=== PATIENT | male | born 1955 | race Caucasian/White ===

== ENCOUNTER 2021-04-16 11:52 | Outpatient (CLI) | payer MEDICARE, OTHER, SELFPAY ==
--- NOTE | 2021-04-16 12:43 | ECG_ITS ---
Measurements Intervals [place] Rate: 65 P: 73 MT: 205 QRS: 27 QRSD: 104 T: 29 QT: 404 QTc: 422 Interpretive Statements SINUS RHYTHM CONSIDER INFERIOR INFARCT, AGE INDETERMINATE ABNORMAL ECG Electronically Signed On 04-16-2021 13:25:28 CDT by Lorenzo Johnson D.O.
[2021-04-16 13:04] LABS: Basophils Percent Auto 0.5 % (0.2-1.2); Eosinophils Absolute Auto 0.1 K/mm3 (0-0.3); Eosinophils Percent Auto 1.7 % (0-4.4); Hematocrit 43.4 % (42.0-52.0); Immature Granulocyte Absolute 0.02 K/mm3 (0.00-0.031); Immature Granulocyte Percent A 0.3 % (0-0.5); Lymphocytes Absolute Auto 1.93 K/mm3 (0.9-3.2); Lymphocytes Percent Auto 25.4 % (18.3-44.2); Mean Corpuscular HGB Conc 34.6 g/dl (32-36); Mean Corpuscular Hemoglobin 32.8 pg (26-34); Mean Platelet Volume 9.5 fl (7.4-10.4); Monocytes Absolute Auto 0.5 K/mm3 (0.1-0.6); Neutrophils Absolute Auto 4.9 K/mm3 (1.3-6.7); Neutrophils Percent Auto 65.1 % (45.5-73.1); Platelet Count Result 180 k/mm3 (150-375); Red Blood Count 4.57 M/mm3 (4.6-6.20); Red Cell Distribution Width 12.3 % (11.5-14.5); White Blood Count 7.6 K/mm3 (4.5-10.0)
[2021-04-16 13:13] LABS: INR 0.8; Prothrombin Time 11.1 Seconds (11.1-14.7)
[2021-04-16 13:14] LABS: Partial Thromboplastin Time 27.9 SECONDS (22.3-36.8)
[2021-04-16 13:22] LABS: Alanine Aminotransferase 44 U/L (4-50); Albumin Level 4.6 g/dL (3.5-5.1); Alkaline Phosphatase 73 U/L (38-126); Anion Gap 9 mmol/L (8-16); Aspartate Amino Transferase 24 U/L (17-59); Bilirubin,Total 0.7 mg/dL (0.2-1.3); Blood Urea Nitrogen 14 mg/dL (9-20); Calcium 8.7 mg/dL (8.4-10.2); Carbon Dioxide 24 mmol/L (22-30); Chloride 108 mmol/L (98-107); Estimated Glomerular Filt Rate > 60; Glucose 101 mg/dL (65-110); Potassium 4.1 mmol/L (3.4-5.0); Sodium 141 mmol/L (137-145)
== END 2021-04-16 11:53 | disposition home or self-care (01) ==
LOC: ANHSURGERY 12:00
PROVIDERS: PCP Internal Medicine; Visit Provider Urology
DX: Z01.818 Encounter for other preprocedural examination (principal); C61 Malignant neoplasm of prostate; I10 Essential (primary) hypertension; R94.31 Abnormal electrocardiogram [ECG] [EKG]
CPT/HCPCS: 36415; 80053; 85025; 85610; 85730; 86850; 86900; 86901; 87086; 87147; 87181; 87186; 93005

== ENCOUNTER 2021-04-27 02:01 | Day surgery (SDC) | payer MEDICARE, OTHER, SELFPAY ==
[2021-04-16 12:45] VITALS: BMI 31.5
[2021-04-16 12:53] VITALS: BP 165/82; PULSE 70; RESP 16; TEMP 37.1; O2SAT 100
--- NOTE | 2021-04-26 14:00 | WPDANESEPPF ---
Anes - Initial Pre Proc Eval Procedure: Operation Date: 04/27/21 07:30 Proposed Procedures p Robotic Nerve Sparing Prostatectomy, Possible Bilateral Pelvic Lymph Node Dissection - Salinas Blanchard MD Date/Time: 04/26/21 14:00 Surgeon: Salinas Blanchard MD Pre Op Diagnosis: prostate CA Patient Data Age: 65 Gender: M Height: 1.8 m Weight: 102.5 kg Last Vital Signs Temp 98.8 F 04/16/21 12:53 Pulse 70 04/16/21 12:53 Resp 16 04/16/21 12:53 BP 165/82 H 04/16/21 12:53 Pulse Ox 100 04/16/21 12:53 Allergies Allergy/AdvReac Type Severity Reaction Status Date / Time pollen extracts Allergy Unknown Unknown Verified 04/22/21 11:19 Home Medications Medication Instructions Recorded Confirmed Type ascorbic acid (vitamin C) 500 mg 500 mg PO HS 07/24/19 04/26/21 History capsule calcium polycarbophil 625 mg tablet 1,250 mg PO HS 07/24/19 04/26/21 History fexofenadine 60 mg-pseudoephedrine 1 tablet PO Q12H PRN 07/24/19 04/26/21 History ER 120 mg tablet,ext.release,12 hr amlodipine 5 mg-benazepril 40 mg 1 cap PO DAILY #90 cap 05/18/20 04/26/21 Rx capsule omega-3 fatty acids 1,000 mg 1,000 mg PO DAILY 12/03/20 04/26/21 History capsule atorvastatin 40 mg tablet 40 mg PO DAILY #90 tablet 03/02/21 04/26/21 Rx nitrofurantoin 100 mg PO Q12H 04/22/21 04/26/21 History monohydrate/macrocrystals 100 mg capsule Patient hx anesthesia problems: none Family hx anesthesia problems: none Results Review: All pre-operative results and documents have been reviewed as part of the pre-operative evaluation. [facility] Past Medical History Medical History (Updated 04/22/21 @ 12:28 by Kristi Finn [facility]) Abnormal finding of blood chemistry, unspecified Benign essential hypertension BMI 32.0-32.9,adult BMI 33.0-33.9,adult BMI 36.0-36.9,adult BPH (benign prostatic hyperplasia) Colon cancer screening DJD (degenerative joint disease) Elevated PSA Encounter for preventive health examination Encounter for routine adult health examination without abnormal findings Encounter for special screening examination for neoplasm of prostate Hyperlipidemia IGT (impaired glucose tolerance) On prison drug therapy KRISTY on CPAP Prostate cancer Rising PSA level Vitamin D deficiency Family History Family History Mother Hypertension Father Family history of arthritis Social History Social History Smoking packs per day: 1 Smoking cigarettes per day: 20.0 Years smoked: 30 Smoking pack-years: 30.00 Smoking status: Former smoker Tobacco type: cigarettes and cigars Smoking end date: 07/10/94 Additional smoking assessment comments: SMOKED 2-3 CIGARS DAILY. QUIT 2019 Alcohol intake: current Drinks per week: 84 Alcohol use details: STATES HAS NOT HAD A DRINK SINCE THE BEGINNING OF Living arrangements: with family Spiritual care concerns: No Anes - Eval Final PreProcedure Day of Procedure 04/26/21 14:00 Patient weight: obese Heart: regular rate and rhythm Lungs: clear to auscultation Airway: Mallampati scale class III Neurological: alert and oriented Last oral intake: >/= 8 hours ASA classification: III (glidescope intubation) Emergent: no Anesthetic plan: proceed Anesthesia type and monitoring: general ETT and standard monitoring Results Review: All pre-operative results and documents have been reviewed as part of the pre-operative evaluation. Informed Consent: The patient's anesthetic plan and its attendant risks and benefits were discussed with the patient/family/POA. Questions were solicited and answers provided to the satisfaction of the patient/family/POA.
[2021-04-27] VITALS (15 sets, daily range): BP systolic 129–176; BP diastolic 58–88; PULSE 65–93; RESP 12–20; TEMP 36–37.2; O2SAT 92–100
[2021-04-27] MEDS: LACTATED RINGERS 1,000 ML 30 ML IV CONT ×3 (07:09→12:25)
--- NOTE | 2021-04-27 07:11 | WPDHPUPDATE1 ---
History and Physical Update Update Date/Time: 04/27/21 07:11 History and Physical has been reviewed, including an updated exam of the patient. There are NO changes in the patient's condition. Risks, benefits, and alternatives have been discussed and questions answered. Patient agrees to proceed with procedure.
[2021-04-27] MEDS: ceFAZolin 2 GM/D5W 50 ML 2 GM/50 ML BAG IVPB (07:24)
[2021-04-27] MEDS: BUPIVACAINE HCL 0.5% PF 30 ML VIAL INFILTRATE (08:40)
--- NOTE | 2021-04-27 10:03 | SUR.OPER ---
Frozen section specimen Operative incision- 0724 Excision of specimen- 0941 Out of Room- 0942 Recieved by lab- 0944 Report from lab- [id number]
--- NOTE | 2021-04-27 11:34 | P.OP_ITS ---
Procedure Note - Detailed Date of Procedure 04/27/21 Pre-op Diagnosis prostate CA Post-op Diagnosis same Procedure Performed Her robotic assist nerve-sparing prostatectomy with bilateral pelvic lymph node dissection and closure of umbilical hernia Surgeon Salinas Blanchard MD Anesthesia general Description of Procedure Patient is taken the operative suite correctly identified. Once anesthesia was obtained he was placed in low-lying dorsal lithotomy position and prepped and draped usual sterile fashion. Eighteen [place] Barrios was placed with 20 cc in the balloon. Supraumbilical incision was made carried down to the rectus fascia. It is apparent that he has a small little umbilical herniation just i nferior to my incision. Veress needle was inserted into the abdominal cavity and the abdomen was insufflated to 15 mmHg pressure. Camera port was placed under direct vision. Working ports were placed in appropriate locations. Patient was placed in steep Trendelenburg position and the robot was docked. Posterior approach was then taken. Seminal vesicles were dissected out in their entirety. The vas were transected. Plane between the prostate and rectum was developed. Bladder was then taken down. Space of Retzius was developed bilaterally. Dorsal venous complex was isolated and ligated using 0 Vicryl. Bladder was then incised anteriorly posterior bladder neck was then transected. There was a nice bladder neck sparing procedure performed. The previously dissected space with the vas is were entered. There was some tissue that was excised around the bladder neck on the left side which came back to be simply smooth muscle. Bilateral nerve-sparing was performed. The left side appeared to me to have some abnormal appearing tissue which I then took in a separate specimen. Dorsal venous complex was transected. Urethral stump was also transected. Gurwinder stitch was then placed. Bladder neck was then anastomosed to the urethral stump using the lock suture in a running fashion. There was good approximation mucosa. Bilateral lymphadenectomies were performed with the boun daries being the external iliac veins obturator nerve Mustapha's ligament and bifurcation of the vessels. Clips were placed proximally distally. A clip was placed on the left pelvic lymph node packet for identification. All lap count needle count sponge counts were correct. Bladder was filled with 150 cc of saline there was no evidence of extravasation. Patient is taken recovery room stable condition. Estimated Blood Loss 50 Drains Yes Packing No Pathology yes Complications No immediate complications Condition stable Disposition PACU
[2021-04-27] MEDS: fentaNYL CITRATE INJ (*CRX) 100 MCG/2 ML VIAL 25 MCG IV PUSH ×2 (12:13→12:28)
[2021-04-27] MEDS: LACTATED RINGERS 1,000 ML 125 ML IV CONT ×2 (13:50→21:11)
[2021-04-27] MEDS: HYOSCYAMINE SULFATE 0.125 MG TABLET SUBLINGUAL (13:55)
[2021-04-27] MEDS: HYDROcodone/acetaminophen (*CRX) 5-325 MG TABLET 2 TAB PO (16:00)
[2021-04-27] MEDS: lisinopriL 20 MG TABLET 40 MG PO (16:01)
[2021-04-27] MEDS: DOCUSATE SODIUM 100 MG CAPSULE PO (16:01)
[2021-04-27] MEDS: amLODIPine BESYLATE 5 MG TABLET PO (16:02)
[2021-04-28] MEDS: LACTATED RINGERS 1,000 ML 125 ML IV CONT (05:18)
[2021-04-28 05:49] LABS: Hematocrit 38.3 % (42.0-52.0); Hemoglobin 12.9 g/dL (14.0-18.0)
[2021-04-28 06:00] VITALS: BP 156/70; PULSE 60; RESP 18; TEMP 36.9; O2SAT 98
[2021-04-28 06:04] LABS: Anion Gap 5 mmol/L (8-16); Blood Urea Nitrogen 11 mg/dL (9-20); Calcium 8.6 mg/dL (8.4-10.2); Carbon Dioxide 29 mmol/L (22-30); Chloride 105 mmol/L (98-107); Estimated CRCL calculation 96 ml/min; Estimated Glomerular Filt Rate > 60; Glucose 131 mg/dL (65-110); Potassium 3.7 mmol/L (3.4-5.0); Sodium 139 mmol/L (137-145)
[2021-04-28] MEDS: DOCUSATE SODIUM 100 MG CAPSULE PO (08:52)
[2021-04-28] MEDS: amLODIPine BESYLATE 5 MG TABLET PO (08:52)
[2021-04-28] MEDS: ATORVASTATIN 40 MG TABLET PO (08:52)
[2021-04-28] MEDS: levoFLOXacin 500 MG TABLET PO (08:52)
[2021-04-28] MEDS: lisinopriL 20 MG TABLET 40 MG PO (08:52)
[2021-04-28] MEDS: HYDROcodone/acetaminophen (*CRX) 5-325 MG TABLET 1 TAB PO (08:53)
[2021-04-28 11:44] VITALS: BP 149/81; PULSE 78; RESP 16; TEMP 36.6; O2SAT 94
--- NOTE | 2021-04-28 13:02 | WPDUROPN2 ---
Progress Note: A&P Assessment and Plan (1) Prostate cancer: Code(s): C61 - Malignant neoplasm of prostate Status: Acute Assessment and Plan: Ok to remove TEREZA drain and discharge home with catheter to f/u for cystogram and lombardi removal next week. Subjective Subjective Date/Time Seen: 04/28/21 13:02 POD #1 Robotic Assisted Nerve Sparing Prostatectomy with bilateral Pelvic Lymph Node Dissection and closure of abdominal hernia. He is doing very well, passing flatus, sitting up in bed, tolerating pain and diet. Review of Systems Cardiovascular: Cardiovascular: Denies chest pain Respiratory: Respiratory: Reports no additional respiratory complaints Gastrointestinal: Gastrointestinal: Reports abdominal pain (at inicisions), Denies nausea and Denies vomiting Genitourinary: Genitourinary: Denies hematuria and Denies flank pain Exam Resp: Effort & Inspection: normal respiratory effort Cardio: Rate: regular rate GI: Inspection: incision (all are well approximated, no drainage, edema or redness present, tender ) GI Palp: Yes Soft to palpation and Yes Tenderness to palpation present (GI) : General: Yes no CVA tenderness Urinary Catheter: Urinary Catheter: patent and draining and urine clear Extrem: General: no edema Objective Data Vital Signs Vital Signs: Vital Signs - 24 hr 04/27/21 13:05 04/27/21 13:20 04/27/21 13:35 Temperature 98.3 F Pulse Rate 79 79 78 Respiratory Rate 12 14 18 Blood Pressure 160/84 H 163/83 H 139/77 Pulse Oximetry 92 96 98 04/27/21 13:50 04/27/21 14:20 04/27/21 15:12 Temperature 98.8 F 98.9 F 97.2 F L Pulse Rate 87 87 90 Respiratory Rate 16 16 18 Blood Pressure 167/76 H 156/82 H 176/84 H Pulse Oximetry 95 97 98 04/27/21 19:12 04/27/21 20:00 04/27/21 23:12 Temperature 97.6 F 96.8 F L Pulse Rate 93 93 85 Respiratory Rate 20 20 20 Blood Pressure 152/75 H 143/69 H Pulse Oximetry 97 97 95 04/28/21 06:00 04/28/21 11:44 Temperature 98.5 F 97.8 F Pulse Rate 60 78 Respiratory Rate 18 16 Blood Pressure 156/70 H 149/81 H Pulse Oximetry 98 94 Intake/Output Intake/Output: Intake & Output 04/25/21 04/26/21 04/27/21 04/28/21 23:59 23:59 23:59 23:59 Intake Total 1400 1300 Output Total 245 3965 Balance 3332 -8098 Meds/Results Medications: Active Medications Generic Name Dose Route Start Last Admin Trade Name Freq PRN Reason Stop Dose Admin Hydrocodone Bitart/Acetaminophen 1 tab 04/27/21 13:27 04/28/21 08:53 Hydrocodone/Acetaminophen (*Crx) 5-325 Mg Tablet PO 1 tab Q6H PRN Administration Pain Rated 1-3 Hydrocodone Bitart/Acetaminophen 2 tab 04/27/21 13:27 04/27/21 16:00 Hydrocodone/Acetaminophen (*Crx) 5-325 Mg Tablet PO 2 tab Q6H PRN Administration Pain Rated 4-6 Amlodipine Besylate 5 mg 04/27/21 13:35 04/28/21 08:52 Amlodipine Besylate 5 Mg Tablet PO 5 mg DAILY JOSÉ Administration Atorvastatin Calcium 40 mg 04/28/21 09:00 04/28/21 08:52 Atorvastatin 40 Mg Tablet PO 40 mg DAILY JOSÉ Administration Docusate Sodium 100 mg 04/27/21 17:00 04/28/21 08:52 Docusate Sodium 100 Mg Capsule PO 100 mg BID JOSÉ Administration Hyoscyamine 0.125 mg 04/27/21 13:27 04/27/21 13:55 Hyoscyamine Sulfate 0.125 Mg Tablet SUBLINGUAL 0.125 mg Q4H PRN Administration Bladder Spasm Lactated Ringer's 1,000 mls @ 125 mls/hr 04/27/21 13:27 04/28/21 05:18 Lr - Lactated Ringers Iv IV CONT 125 mls/hr .Q8H JOSÉ Administration Ketorolac Tromethamine 15 mg 04/27/21 13:27 Ketorolac 15 Mg/Ml Vial (*Bkc) IV PUSH 04/28/21 13:26 Q6H PRN Pain Rated 4-6 Levofloxacin 500 mg 04/28/21 09:00 04/28/21 08:52 Levofloxacin 500 Mg Tablet PO 500 mg DAILY JOSÉ Administration Lisinopril 40 mg 04/27/21 13:35 04/28/21 08:52 Lisinopril 20 Mg Tablet PO 40 mg DAILY JOSÉ Administration Morphine Sulfate 1 mg 04/27/21 13:27 Morphine Sulfate (*Crx) 2 Mg/Ml Inj I
--- NOTE | 2021-04-28 13:11 | WPDANESPN ---
Anes - Prog Note Post-Op Date/Time: 04/28/21 13:11 Cardiovascular status: normal Respiratory status: normal Airway patency: baseline Mental status: baseline Post-Op hydration status: normal Vital Signs: Last Vital Signs Temp 36.6 C 04/28/21 11:44 Pulse 78 04/28/21 11:44 Resp 16 04/28/21 11:44 BP 149/81 H 04/28/21 11:44 Pulse Ox 94 04/28/21 11:44 Pain Score (VAS): 0 I/O: Intake & Output 04/27/21 04/28/21 04/28/21 23:59 07:59 15:59 Intake Total 1000 1300 Output Total 30 1540 2945 Balance 970 -240 -2945 Laboratory Tests 04/28/21 05:35 04/28/21 05:35 04/28/21 04/28/21 05:35 05:35 Hgb 12.9 L Hct 38.3 L Sodium 139 Potassium 3.7 Chloride 105 Carbon Dioxide 29 Anion Gap 5 L BUN 11 Creatinine 0.80 Estim Creat Clear Calc 96 Estimated GFR > 60 Glucose 131 H Calcium 8.6 Post-procedural complaints: none Patient Feedback: Patient satisfied with anesthetic care.
== END 2021-04-28 14:34 | disposition home or self-care (01) ==
LOC: ANHSURGERY 06:05 → ANH3MED 13:29
PROVIDERS: PCP Internal Medicine; Visit Provider Urology
PROC: 0VT04ZZ Resection of Prostate, Percutaneous Endoscopic Approach (ICD-10-PCS; CPT 55867; principal; 2021-04-27 07:30)
DX: C61 Malignant neoplasm of prostate (principal); C77.5 Secondary and unspecified malignant neoplasm of intrapelvic lymph nodes; K42.9 Umbilical hernia without obstruction or gangrene; I10 Essential (primary) hypertension; G47.33 Obstructive sleep apnea (adult) (pediatric); E78.5 Hyperlipidemia, unspecified; E55.9 Vitamin D deficiency, unspecified; Z87.891 Personal history of nicotine dependence; E66.9 Obesity, unspecified; Z68.30 Body mass index [BMI] 30.0-30.9, adult
CPT/HCPCS: 55866; 38571; S2900; 36415; 80048; 85014; 85018; 88305; 88307; 88309; 88331; A9270; J0690; J1100; J1170; J2250; J2405; J2704; J2710; J3010; J7030; J7120; Q9968

== ENCOUNTER 2021-05-05 08:35 | Outpatient (CLI) | payer MEDICARE, OTHER, SELFPAY ==
--- NOTE | ~2021-05-05 | XR_ITS ---
EXAMINATION: XR cystogram DATE: 05/05/2021 09:16 INDICATION: Prostate cancer status post prostatectomy. TECHNIQUE: Water-soluble contrast was gravity-infused through the patient's Barrios catheter. Multiple fluoroscopic images were obtained. Fluoroscopy exposure time was 0.4 minutes. The total number of shamar ges was 10. COMPARISON: None. FINDINGS: There is a Barrios catheter in expected position. There was no extraluminal leakage of contra st. No ureteral reflux. Surgical clips overlie the scrotum. IMPRESSION: 1. No extraluminal leakage of contrast. Reviewed, dictated and finalized at location A.
== END 2021-05-05 08:36 | disposition home or self-care (01) ==
PROVIDERS: PCP Internal Medicine; Visit Provider Urology
DX: C61 Malignant neoplasm of prostate (principal)
CPT/HCPCS: 51600; 74430; Q9967

== ENCOUNTER 2021-07-14 01:03 | Day surgery (SDC) | payer MEDICARE, OTHER, SELFPAY ==
[2021-06-01 13:07] VITALS: BMI 30.1
[2021-06-28 13:45] VITALS: BMI 30.1
[2021-07-14 09:58] VITALS: BP 145/88; PULSE 74; RESP 18; TEMP 36.7; O2SAT 100
--- NOTE | 2021-07-14 10:03 | PM.HPGS ---
History of Present Illness History of Present Illness Consent: Risks, benefits, and alternatives have been discussed and questions answered. Patient agrees to proceed with procedure. Chief complaint: hx of colon polyps Narrative: Aidan Jane is a 65 year old male Referred for colon cancer screening. He has a history of polyps. He had 1 polyp removed about 6 years ago and others prior to that Review of Systems Review of Systems: All systems reviewed & are unremarkable except as noted in HPI and below PMFSH Past Medical History Medical History (Updated 04/22/21 @ 12:28 by Kristi Finn [facility]) Abnormal finding of blood chemistry, unspecified Benign essential hypertension BMI 32.0-32.9,adult BMI 33.0-33.9,adult BMI 36.0-36.9,adult BPH (benign prostatic hyperplasia) Colon cancer screening DJD (degenerative joint disease) Elevated PSA Encounter for preventive health examination Encounter for routine adult health examination without abnormal findings Encounter for special screening examination for neoplasm of prostate Hyperlipidemia IGT (impaired glucose tolerance) On custodial drug therapy KRISTY on CPAP Prostate cancer Rising PSA level Vitamin D deficiency Family History Family History Mother Hypertension Father Family history of arthritis Social History Social History Smoking packs per day: 1 Smoking cigarettes per day: 20.0 Years smoked: 30 Smoking pack-years: 30.00 Smoking status: Current every day smoker Tobacco type: cigars Smoking end date: 07/10/94 Additional smoking assessment comments: SMOKED 2-3 CIGARS DAILY. QUIT 2019 Alcohol intake: former Drinks per week: 84 Alcohol use details: States they last drank in March Substance use: never Substance use type: does not use Living arrangements: with family Spiritual care concerns: No Meds Home Medications and Allergies Home Medications Medication Instructions Recorded Confirmed Type ascorbic acid (vitamin C) 500 mg 500 mg PO HS 07/24/19 06/01/21 History capsule calcium polycarbophil 625 mg tablet 1,250 mg PO HS 07/24/19 06/01/21 History fexofenadine 60 mg-pseudoephedrine 1 tablet PO Q12H PRN 07/24/19 06/01/21 History ER 120 mg tablet,ext.release,12 hr omega-3 fatty acids 1,000 mg 1,000 mg PO DAILY 05/27/21 11/23/21 History capsule atorvastatin 40 mg tablet 40 mg PO DAILY #90 tablet 03/02/21 06/01/21 Rx hyoscyamine sulfate [Anaspaz] 0.125 mg SUBLINGUAL Q4H PRN #20 04/28/21 06/01/21 Rx tablet amlodipine 5 mg-benazepril 40 mg See Rx Instructions .ROUTE 06/17/21 Rx capsule .COMPLEX #90 cap Allergies Allergy/AdvReac Type Severity Reaction Status Date / Time pollen extracts Allergy Unknown Unknown Verified 07/14/21 09:57 Vital Signs Vital Signs - 24 hr 07/14/21 09:58 Temperature 36.7 C Pulse Rate 74 Respiratory Rate 18 Blood Pressure 145/88 H Pulse Oximetry 100 Exam Const: General: alert Orientation/consciousness: patient oriented x3 Resp: Auscultation: clear to auscultation bilaterally Cardio: Rhythm: regular rhythm GI: GI Palp: Yes Soft to palpation and No Tenderness to palpation present (GI) Neuro: General: patient oriented x3 Assessment and Plan Assessment and plan (1) Colon cancer screening: Code(s): Z12.11 - Encounter for screening for malignant neoplasm of colon Status: Acute Assessment and Plan: Colonoscopy with possible biopsy or polypectomy or cautery or injection of substances.
[2021-07-14] MEDS: LACTATED RINGERS 1,000 ML 150 ML IV CONT (10:11)
[2021-07-14 11:02] VITALS: BP 118/73; PULSE 68; RESP 21; O2SAT 100
[2021-07-14 11:11] VITALS: BP 135/81; PULSE 55; RESP 19; O2SAT 100
[2021-07-14 11:21] VITALS: BP 146/84; PULSE 52; RESP 16; O2SAT 100
--- NOTE | 2021-07-19 13:53 | PM.HPGS ---
History of Present Illness History of Present Illness Consent: Risks, benefits, and alternatives have been discussed and questions answered. Patient agrees to proceed with procedure. Chief complaint: hx of colon polyps Narrative: Aidan Jane is a 65 year old male Referred for colon cancer screening. He has a history of having polyps Review of Systems Review of Systems: All systems reviewed & are unremarkable except as noted in HPI and below PMFSH Past Medical History Medical History Abnormal finding of blood chemistry, unspecified Benign essential hypertension BMI 32.0-32.9,adult BMI 33.0-33.9,adult BMI 36.0-36.9,adult BPH (benign prostatic hyperplasia) Colon cancer screening DJD (degenerative joint disease) Elevated PSA Encounter for preventive health examination Encounter for routine adult health examination without abnormal findings Encounter for special screening examination for neoplasm of prostate Hyperlipidemia IGT (impaired glucose tolerance) On [facility]dc drug therapy KRISTY on CPAP Prostate cancer Rising PSA level Vitamin D deficiency Family History Family History Mother Hypertension Father Family history of arthritis Social History Social History Smoking packs per day: 1 Smoking cigarettes per day: 20.0 Years smoked: 30 Smoking pack-years: 30.00 Smoking status: Current every day smoker Tobacco type: cigars Smoking end date: 07/10/94 Additional smoking assessment comments: SMOKED 2-3 CIGARS DAILY. QUIT 2019 Alcohol intake: former Drinks per week: 84 Alcohol use details: States they last drank in March Substance use: never Substance use type: does not use Living arrangements: with family Spiritual care concerns: No Meds Home Medications and Allergies Home Medications Medication Instructions Recorded Confirmed Type ascorbic acid (vitamin C) 500 mg 500 mg PO HS 07/24/19 06/01/21 History capsule calcium polycarbophil 625 mg tablet 1,250 mg PO HS 07/24/19 06/01/21 History fexofenadine 60 mg-pseudoephedrine 1 tablet PO Q12H PRN 07/24/19 06/01/21 History ER 120 mg tablet,ext.release,12 hr omega-3 fatty acids 1,000 mg 1,000 mg PO DAILY 12/03/20 06/01/21 History capsule atorvastatin 40 mg tablet 40 mg PO DAILY #90 tablet 03/02/21 06/01/21 Rx hyoscyamine sulfate [Anaspaz] 0.125 mg SUBLINGUAL Q4H PRN #20 04/28/21 06/01/21 Rx tablet amlodipine 5 mg-benazepril 40 mg See Rx Instructions .ROUTE 06/17/21 07/14/21 Rx capsule .COMPLEX #90 cap Allergies Allergy/AdvReac Type Severity Reaction Status Date / Time pollen extracts Allergy Unknown Unknown Verified 07/14/21 09:57 Exam Resp: Auscultation: clear to auscultation bilaterally Cardio: Rate: regular rate Rhythm: regular rhythm GI: GI Palp: Yes Soft to palpation and No Tenderness to palpation present (GI) Assessment and Plan Assessment and plan (1) Colon cancer screening: Code(s): Z12.11 - Encounter for screening for malignant neoplasm of colon Status: Acute Assessment and Plan: Colonoscopy with possible biopsy or polypectomy or cautery or injection of substances.
== END 2021-07-14 11:26 | disposition home or self-care (01) ==
PROVIDERS: PCP Internal Medicine; Visit Provider Internal Medicine Gastroenterology
PROC: 0DJD8ZZ Inspection of Lower Intestinal Tract, Via Natural or Artificial Opening Endoscopic (ICD-10-PCS; CPT 45378; principal; 2021-07-14 10:45)
DX: Z12.11 Encounter for screening for malignant neoplasm of colon (principal); D12.4 Benign neoplasm of descending colon; D12.5 Benign neoplasm of sigmoid colon; K57.30 Diverticulosis of large intestine without perforation or abscess without bleeding; I10 Essential (primary) hypertension; N40.0 Benign prostatic hyperplasia without lower urinary tract symptoms; E78.5 Hyperlipidemia, unspecified; G47.33 Obstructive sleep apnea (adult) (pediatric); E55.9 Vitamin D deficiency, unspecified; Z87.891 Personal history of nicotine dependence
CPT/HCPCS: 45385; 88305; J2704; J7120

== ENCOUNTER 2021-12-24 11:08 | Outpatient (CLI) | payer MEDICARE, OTHER, SELFPAY ==
--- NOTE | ~2021-12-24 | XR_ITS ---
EXAMINATION: XR thoracic spine 3V, XR sacrum coccyx min 2V, XR lumbar spine 2-3V DATE: 12/24/2021 11:38 INDICATION: Dorsalgia and right-sided sacroiliac joint pain. TECHNIQUE: 1. One AP, lateral and lateral swimmer's views of the thoracic spine were obtained. 2. AP, lateral and coned-down lateral lumbosacral views of the lumbar spine were obtained. 3. AP, angled AP and lateral views of the sacrum and coccyx were obtained. COMPARISON: None. FINDINGS: Thoracic spine: 15 degrees upper thoracic levoscoliosis measured between T2 and T6. Sagittal alignment is normal. Rick tebral body heights are normal. Moderate lower cervical spondylosis. Mild to moderate multilevel disc height loss small endplate osteophytes throughout the thoracic spine most prominent in the midthorac ic spine. Visualized portion of the lungs are clear with no pleural effusion or pneumothorax. Cardiom ediastinal silhouette is normal. Lumbar spine: 11 degrees levoscoliosis between L2 and L4. Bilateral L5 pars interarticularis defects with millimete r anterolisthesis L5 on S1. Severe disc height loss at L4-5 and L5-S1. Moderate lower lumbar facet os teoarthritis. Atherosclerotic aorta. Normal bowel gas pattern. Sacrum and coccyx: No fracture in the pelvis or proximal femurs. Mild bilateral hip and sacroiliac osteoarthritis. Likel y vasectomy clips projecting over the region of the bilateral distal inguinal canals. IMPRESSION: 1. 15 degrees upper thoracic levoscoliosis with mild to moderate thoracic spondylosis. 2. 11 degrees lumbar levoscoliosis with severe lower lumbar spondylosis. 3. 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 4. 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 Reviewed, dictated and finalized at location A. IMPRESSION: 1. 15 degrees upper thoracic levoscoliosis with mild to moderate thoracic spond ylosis. 2. 11 degrees lumbar levoscoliosis with severe lower lumbar spondylosis. 3. 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 4. 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 IMPRESSION: 1. 15 degrees upper thoracic levoscoliosis with mild to moderate thoracic spond ylosis. 2. 11 degrees lumbar levoscoliosis with severe lower lumbar spondylosis. 3. 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 4. 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
== END 2021-12-24 11:09 | disposition home or self-care (01) ==
LOC: ANHIMG 11:12
PROVIDERS: PCP Internal Medicine; Visit Provider Internal Medicine
DX: M16.0 Bilateral primary osteoarthritis of hip (principal); M53.3 Sacrococcygeal disorders, not elsewhere classified; M47.896 Other spondylosis, lumbar region; M47.894 Other spondylosis, thoracic region
CPT/HCPCS: 72072; 72100; 72220

== ENCOUNTER 2024-09-04 14:23 | Outpatient (CLI) | payer MEDICARE, OTHER, SELFPAY ==
--- NOTE | ~2024-09-04 | XR_ITS ---
EXAM: XR lumbar spine min 4V DATE: 09/04/2024 14:59 HISTORY: M54.50 - Low back pain, unspecified LEFT LEG RADICULOPATHY . COMPARISON: 12/24/2021. FINDINGS: Moderate scoliosis. 5 nonrib-bearing lumbar-type vertebral bodies. 12 mm anterolisthesis at L5-S1. Vertebral body heights preserved. Severe disc space narrowing and vacuum phenomenon at L4-5 a nd L5-S1. Moderate facet hypertrophy and sclerosis in the lower lumbar spine. Bilateral pars defects at L5. No acute fracture or dislocation. Atherosclerotic aortic ossification, without evident aneurys m. IMPRESSION: Grade 2 anterolisthesis at L5-S1 secondary to bilateral pars defects. Severe lumbar degen erative disc disease at L4-5 and L5-S1. Moderate lower lumbar facet arthropathy. Reviewed, dictated and finalized at location K. TLESS DENT REPAIR TECHNICIAN IMPRESSION: Grade 2 anterolisthesis at L5-S1 secondary to bilateral pars defect s. Severe lumbar degenerative disc disease at L4-5 and L5-S1. Moderate lower elena mbar facet arthropathy.
--- NOTE | ~2024-09-04 | XR_ITS ---
EXAM: XR sacroiliac joints min 3V DATE: 09/04/2024 14:58 HISTORY: M54.50 - Low back pain, unspecified RIGHT GROIN PAIN . COMPARISON: None available. FINDINGS: Severe lower lumbar degenerative disease. Mild degenerative changes in the bilateral SI caitlyn ints and bilateral hips. No acute fracture or dislocation. The regional soft tissues are within timoteo l limits. 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 Reviewed, dictated and finalized at location K. D INSPECTOR
--- OUTSIDE RECORDS SUMMARY | 2024-09-04 16:39 | XMS_ITS | Continuity of Care Document ---
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 [address] , [address], [place], [address], [place]. tel:[phone] Family History Family Member Type Diagnosis Age At Onset No Information Payers Payer name Insurance type Covered alliance party ID Authoriza tion(s) No Information Social [...]
--- OUTSIDE RECORDS SUMMARY | 2024-09-04 16:39 | XMS_ITS | Clinical Summary ---
Author Organization [facility] Address [address] [place] [address] Care Team Providers Care Steel Manager Name Role Phone Unavailable Primary Care Provider Unavailabl e Social History Tobacco Use Types Packs/Day Years Used Date Smoking Tobacco: Never Assessed Sex and Gender Information Value Date Recorded Sex Assigned at Not on file Legal Sex Male 4:37 PM CDT Gender Identity Not on file Sexual Orientation Not on file Plan of Treatment Health Maintenance Due Date Last Done Comments Colorectal Cancer Screening Colonoscopy (10 Years) 1955 Hepatitis C 11/14/1973 DTaP, Tdap and Td Vaccines ( 1 - Tdap) 11/14/1974 Zoster Vaccines (1 of 2) 11/14/2005 Pneumococcal Vaccine: 65+ Ye ars (1 of 1 - PCV) 11/14/2020 COVID-19 Vaccine ( - 2023-2 5 season) 2024 Influenza Adult (#1) 2024 RSV Immunization or 60+ Years (1 - 1-dose 75+ series) 11/14/2030 Meningococcal B Vaccine Aged Out No l onger eligible based on patient's age to complete this topic Meningococcal Vaccine Aged Out No jessica aaliyah eligible based on patient's age to complete this topic RSV Immunizations Under 20 Months Aged Out No longer eligible based on patient's age to complete this topic Advance Directives Documents on File Type Date Recorded Patient Telephonic Nurse Expl anation Advance Directives and Living Will 04/13/2019 12:00 AM ADVANCED DIRECTIVES
--- OUTSIDE RECORDS SUMMARY | 2024-09-04 16:40 | XMS_ITS | Patient Health Summary ---
Author Organization [facility] Address [address] [place] [address] Care Team Providers Care Shingles Roofer Name Role Phone Esvin Mckeon MD Primary Care Provider [phone] Note from [facility],non-owned Affiliates and Associated Physician Practices is amultiple site organization consisting of ambulatory clinics and hospital sitesin [place], [place], [place] and [place]. This disclosure is being madepursuant to the Care Everywhere program and may not contain all information available regarding this patient. Last updated 18.[facility] [employer] Social History Tobacco Use Types Packs/Day Years Used Date Smoking Tobacco: Never Assessed Sex and Gender Information Value Date Recorded Sex Assigned at Not on file Gender Identity Not on file Sexual Orientation Not on file Procedures * GROSS + MICRO EXAM(Performed 05/25/2005) Results * GROSS + MICRO EXAM (05/25/2005 4:00 PM WORD PROCESSOR OPERATOR) Result CASE NUMBER [id number] Comment: ORDERING PHYSICIAN NACHO BOND SPECIMEN TYPE Esophageal Biopsy-distal esop Date 05/25/2005 Physician Kulwant Bond Gross Description The specimen is received in two Formalin filled containers labeled with the patient's name, Aidan Jane. 1) The first container is labeled distal esophagus. It consists of two fragments of rectangular shaped pale melo whispy tissue measuring 0.3 x 0.1 x 0.1 cm each, submitted entirely into cassette A. 2) The second container is labeled rectal polyp. It consists of a single pale pink red polyp measuring 1.2 x 0.8 x 0.6 cm. It is bisected and submitted entirely into cassette B. NH winkler Microscopic Exam 1. Sections show squamous lined mucosa with few gastric glands present, consistent with distal esophagus. There is mild chronic inflammation with reactive changes. The squamous epithelium shows mild basal cell hyperplasia and occasional eosinophilic infiltration, consistent with reflux esophagitis. No evidence of intestinal metaplasia or dysplasia is seen. 2. Sections show a polypoid fragment of colonic mucosa with features of tubular adenoma. No high-grade dysplasia or malignancy is seen. MC/na Diagnosis I. Esophagus, distal, biopsy -- Mild chronic inflammation, consistent with reflux esophagitis II. Rectum, polyp, biopsy -- Tubular adenoma MC/na Law Researcher na Pathologist Regina Mandujano M.D. Snomed. 05/26/2005 0932 <5> CPT code 16626w9 MISCELLANEOUS SAMPLES / Unknown 05/25/2005 4:00 PM WORD PROCESSOR OPERATOR 05/25/2005 4:00 PM WORD PROCESSOR OPERATOR Historical Provider LAB - PATHOLOGY/C YTOLOGY ORDERABLES Care Teams Shingles Roofer Relationship Specialty Start Date End Date Esvin Mckeon MD [address] [facility] [address] [place] [address] PCP - General 04/28/21
--- OUTSIDE RECORDS SUMMARY | 2024-09-04 16:40 | XMS_ITS | Clinical Summary ---
Author Organization [facility] [employer] Address [address] [place] [address] Care Team Providers Care Platform Inspector Name Role Phone Esvin Mckeon MD Primary Care Provider [phone] Source Comments [facility],non-owned Affiliates and Associated Physician Practices is amultiple site organization consisting of ambulatory clinics and hospital sitesin [place], [place], [place]. This disclosure is being madepursuant to the Care Everywhere program and may not contain all information available regarding this patient. Last updated 18.[facility] [employer] Social History Tobacco Use Types Packs/Day Years Used Date Smoking Tobacco: Never Assessed Sex and Gender Information Value Date Recorded Sex Assigned at Not on file Gender Identity Not on file Sexual Orientation Not on file Plan of Treatment Health Maintenance Due Date Last Done Comments COLOGUARD (AGES 45-75) - COL ON CA SCREENING 1955 COLON MONITORING 1955 COLONOSCOPY - COLON CA SCREENING 1955 CT COLONOGRAPHY - COLON CA SCREENING 1955 Colorectal Cancer Screening 1955 FIT - COLON CA SCREENING 1955 FLEX SIG - COLON CA SCREENING 1955 LIPID TESTING 1955 MEDICARE AWV 12 MONTHS 1955 HEPATITIS C SCREENING 11/10/1973 DTAP/TDAP/TD VACCINES (1 - Tdap) 11/14/1974 PNEUMOCOCCAL VACCINE 50+ (1 of 1 - PCV) 11/14/2005 ZOSTER VACCINE (1 of 2) 11/14/2005 COVID-19 VACCINE ( - 2023-2 5 season) 2024 INFLUENZA VACCINE (#1) 2024 DEPRESSION SCREENING 07/10/2024 Respiratory Syncytial Virus (RSV) Vaccine Pt: or over 60 yrs (1 - 1-dose 75+ series) 11/14/2030 HEPATITIS B VACCINE Aged Out No longe r eligible based on patient's age to complete this topic HIB VACCINE Aged Out No longer eligi ble based on patient's age to complete this topic HPV VACCINE Aged Out No longer eligi ble based on patient's age to complete this topic MENINGOCOCCAL (Group B) VACCINE Aged Out No longer eligible based on patient's age to complete this topic MENINGOCOCCAL VACCINE Aged Out No jessica aaliyah eligible based on patient's age to complete this topic Care Teams Platform Inspector Relationship Specialty Start Date End Date Esvin Mckeon MD [address] [facility] [address] [place] [address] PCP - General 04/28/21
--- OUTSIDE RECORDS SUMMARY | 2024-09-04 16:40 | XMS_ITS | Referral Summary ---
Author Organization [facility] [employer] Address [address] [place] [address] Care Team Providers Care Pension Agent Name Role Phone Esvin Mckeon MD Primary Care Provider [phone] Source Comments [facility],non-owned Affiliates and Associated Physician Practices is amultiple site organization consisting of ambulatory clinics and hospital sitesin [place], [place], [place] and [place]. This disclosure is being madepursuant to the Care Everywhere program and may not contain all information available regarding this patient. Last updated 18.[facility] [employer] Social History Tobacco Use Types Packs/Day Years Used Date Smoking Tobacco: Never Assessed Sex and Gender Information Value Date Recorded Sex Assigned at Not on file Gender Identity Not on file Sexual Orientation Not on file Plan of Treatment Not on file Care Teams Pension Agent Relationship Specialty Start Date End Date Esvin Mckeon MD [address] [place] [address] PCP - General 04/28/21
--- OUTSIDE RECORDS SUMMARY | 2024-09-04 16:40 | XMS_ITS | Continuity of Care Document ---
Author Name [facility] Organization [facility] Care Team Providers Care Communication Equipment Repairer Name Role Phone [facility] Unavailable Unavailable Medications Combined list of outpatient medications from Department of Defense and Veterans Affairs facilities.Medications provided include 1) outpatient medications from the last 15 months, and 2) patient-reported medications. Medication Details Route Status Patient Instructions Prescription Expires Prescription Number Last Dispense Date Ordering Provider Order Date Order Qty Source AMLODIPINE- VALSARTAN (amlodipine besylate/va lsartan), 5 MG-320MG, TABLET, ORAL, [employer] 30 ea. BOTTLE Cancele d [id number] : 2023 0 Pharmac y Data Transac tion Service Facilit y AMLODIPINE- VALSARTAN (amlodipine besylate/va lsartan), 5 MG-320MG, TABLET, ORAL, [employer] 30 ea. BOTTLE Cancele d [id number] : 2023 0 Pharmac y Data Transac tion Service Facilit y AMLODIPINE- VALSARTAN (amlodipine besylate/va lsartan), 5 MG-320MG, TABLET, ORAL, MYLAN, 30 ea. BOTTLE Cancele d [id number] : 2023 0 Pharmac y Data Transac tion Service Facilit y AMLODIPINE- VALSARTAN (amlodipine besylate/va lsartan), 5 MG-320MG, TABLET, ORAL, MYLAN, 30 ea. BOTTLE Cancele d [id number] : 2023 0 Pharmac y Data Transac tion Service Facilit y AMLODIPINE- VALSARTAN (amlodipine besylate/va lsartan), 5 MG-320MG, TABLET, ORAL, MYLAN, 30 ea. BOTTLE Active [id number] 4 2023 90 Pharmac y Data Transac tion Service Facilit y AMLODIPINE- VALSARTAN (amlodipine besylate/va lsartan), 5 MG-320MG, TABLET, ORAL, MYLAN, 30 ea. BOTTLE Active [id number] 4 2023 90 Pharmac y Data Transac tion Service Facilit y AREXVY (respirator y syncytial virus vacc. antigen/AS0 1E adjuvant/PF ), 120MCG/0.5, KIT, INTRAMUSC, GLAXOSMITHK LINE, 1 ea. KIT Active [id number] 3 2022 1 Pharmac y Data Transac tion Service Facilit y ATORVASTATI N CALCIUM (ATORVASTAT IN CALCIUM), 40 MG, TABLET, ORAL, APOTEX VALERIE, 90 ea. BOTTLE Cancele d [id number] : 2023 0 Pharmac y Data Transac tion Service Facilit y ATORVASTATI N CALCIUM (ATORVASTAT IN CALCIUM), 40 MG, TABLET, ORAL, APOTEX VALERIE, 90 ea. BOTTLE Active [id number] 4 2023 90 Pharmac y Data Transac tion Service Facilit y ATORVASTATI N CALCIUM (atorvastat in calcium), 40 MG, TABLET, ORAL, STEPHANIE PHARMACEU, 1000 ea. BOTTLE Active [id number] 4 2023 90 Pharmac y Data Transac tion Service Facilit y ATORVASTATI N CALCIUM (atorvastat in calcium), 40 MG, TABLET, ORAL, ZYDUS PHARMACEU, 1000 ea. BOTTLE Active [id number] 4 2023 90 Pharmac y Data Transac tion Service Facilit y PREVNAR 20 (pneumococc al 20-valent conjugate vaccine (Diphtheria crm)/PF), 0.5 ML, SYRINGE, INTRAMUSC, WYETH/PFIZE R, .5 ml SYRINGE Active [id number] 3 2022 0.5 Pharmac y Data Transac tion Service Facilit y TRIAMCINOLO NE ACETONIDE (TRIAMCINOL ONE ACETONIDE), 0.1%, CREAM(GM), TOPICAL, FOUGERA, 80 g JAR Active [id number] 4 2023 80 Pharmac y Data Transac tion Service Facilit y TRIAMCINOLO NE ACETONIDE (TRIAMCINOL ONE ACETONIDE), 0.1%, CREAM(GM), TOPICAL, FOUGERA, 80 g JAR Active [id number] 4 2023 80 Pharmac y Data Transac tion Service Facilit y TRIAMCINOLO NE ACETONIDE (TRIAMCINOL ONE ACETONIDE), 0.1%, CREAM(GM), TOPICAL, FOUGERA, 80 g JAR Active [id number] 4 2023 80 Pharmac y Data Transac tion Service Facilit y TRIAMCINOLO NE ACETONIDE (TRIAMCINOL ONE ACETONIDE), 0.1%, CREAM(GM), TOPICAL, FOUGERA, 80 g JAR Active [id number] 4 2023 80 Pharmac y Data Transac tion Service Facilit y TRIAMCINOLO NE ACETONIDE (TRIAMCINOL ONE ACETONIDE), 0.1%, CREAM(GM), TOPICAL, FOUGERA, 80 g JAR Active [id number] 4 2023 80 Pharmac y Data Transac tion Service Facilit y Allergies, Adverse Reactions, Alerts Combined list of allergies from Department of Defense and Veterans Affairs facilities. It does not include entries that were removed or entered in error. Substance Category Reaction Severity Reaction type Status Date Reported Comments Source No Known Allergies Drug allergy (disorder) active 2010 [facility] Immunizations Combined list of available immunizations from the Department of Defense and Veterans Affairs facilities. Immunization Series Date Given Administered By Site Reaction Lot Number CVX Code Drug Boy'S Adviser Status Comments Source Pneumococcal conjugate PCV20, polysaccharid e [id number] conjugate, adjuvant, PF 2022 () Not Given Pneumococ jasmin conjugate PCV20, polysacch aride [id number] conjugate , adjuvant, PF [facility] pneumococcal polysaccharid e PPV23 2020 [facility], () Not Given pneumococ jasmin polysacch aride PPV23 DoD influenza, injectable, quadrivalent, preservative free 2019 [facility], () Not Given influenza , injectabl e, quadrival ent, preservat az free DoD zoster recombinant 2019 [facility], () Not Given zoster recombina nt DoD zoster recombinant 2019 [facility], () Not Given zoster recombina nt DoD Encounters Combined list of: 1) Encounters from Department of Veterans Affairs facilities going backup to the last 18 months, not all VA inpatient encounters are included; 2) Encounters from the Department of Defense facilities going backup to 280 months. Location Location Details Encounter Type Encounter Number Reason For Visit Attending Provider ADM Date DC Date Status Disposition Source [facility] Outpatient Encounter [id number] 07/16 [facility] Social History Combined list of available smoking, tobacco, and other social history from Department of Defense and Veterans Affairs facilities. Social History Type Response Date Comment Sourc e This section is an empty social history section. DoD
== END 2024-09-04 14:24 | disposition home or self-care (01) ==
PROVIDERS: PCP Internal Medicine; Visit Provider Internal Medicine
DX: M16.0 Bilateral primary osteoarthritis of hip (principal); M46.1 Sacroiliitis, not elsewhere classified; M43.17 Spondylolisthesis, lumbosacral region; M51.369 Other intervertebral disc degeneration, lumbar region without mention of lumbar back pain or lower extremity pain; M51.370 Other intervertebral disc degeneration, lumbosacral region with discogenic back pain only
CPT/HCPCS: 72110; 72202

== ENCOUNTER 2024-10-19 10:22 | Outpatient (CLI) | payer MEDICARE, OTHER, SELFPAY ==
--- OUTSIDE RECORDS SUMMARY | 2024-10-19 10:25 | XMS_ITS | Continuity of Care Document ---
Author Organization [facility] Address [address] [place] [address] Phone Care Team Providers Care Tomato Pulper Operator Name Role Phone Lorenzo OD, Rip Unavailable Unavailable Advance Directives Directive Yes / No Effective Date File Name No Information Encounters Encounter Description Practice Location Reason(s) For Visit Diagnoses Date Provider Providers Copied on Encounter [facility], [address], [place], [place], [id number], [place] tel:[phone] [facility] No Information Nov-0 5-200 2 Lorenzo OD Rip. [address] , [address], [place], [address], [place]. tel:[phone] Family History Family Member Type Diagnosis Age At Onset No Information Payers Payer name Insurance type Covered republican ID Authoriza tion(s) No Information Social History [...]
--- OUTSIDE RECORDS SUMMARY | 2024-10-19 10:25 | XMS_ITS | Clinical Summary ---
Author Organization [facility] [employer] Address [address] [place] [address] Care Team Providers Care Door And Arrival Attendant Name Role Phone Esvin Mckeon MD Primary Care Provider [phone] Source Comments [facility] [employer],non-owned Affiliates and Associated Physician Practices is amultiple site organization consisting of ambulatory clinics and hospital sitesin [place], [place], [place] and [place]. This disclosure is being madepursuant to the Care Everywhere program and may not contain all information available regarding this patient. Last updated 18.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 Gender Identity Not on file Sexual Orientation [...] VACCINE ( - 2023-2 5 season) 2024 DEPRESSION SCREENING 07/10/2024 INFLUENZA VACCINE (Season Ended) 2025 Respiratory Syncytial Virus (RSV) Vaccine Pt: or [...] to complete this topic MENINGOCOCCAL (Group B) VACC INE SHARED DECISION-MAKING Aged Out No longer eligibl e based on patient's age to complete this topic MENINGOCOCCAL GROUPS A/C/Y/W VACCINE Aged Out No longer eligible b ased on patient's age to complete this topic Insurance MEDICARE [facility] Care Teams Door And Arrival Attendant Relationship Specialty Start Date End Date Esvin Mckeon MD [address] [place] [address] PCP - General 04/28/21
--- OUTSIDE RECORDS SUMMARY | 2024-10-19 10:25 | XMS_ITS | Continuity of Care Document ---
Author Name [facility] Organization [facility] Care Team Providers Care Social Media Coordinator Name Role Phone [facility] Unavailable Unavailable Encounters Combined list of: 1) Encounters from Department of Veterans Affairs facilities going backup to the last 18 months, not all VA inpatient encounters are included; 2) Encounters from the Department of IntelliB[employer] facilities going backup to 280 months. Location Location Details Encounter Type Encounter Number Reason For Visit Attending Provider ADM Date DC Date Status Disposition Source [facility] Outpatient Encounter [id number] 07/16 [facility] [place]
--- OUTSIDE RECORDS SUMMARY | 2024-10-19 10:25 | XMS_ITS | Clinical Summary ---
Author Organization [facility] Address [address] [place] [address] Care Team Providers Care Mechanical Pencils Assembler Name Role Phone Unavailable Primary Care Provider [...] of 1 - PCV) 11/14/2020 COVID-19 Vaccine (1 - 2023-2 5 season) 2024 RSV Immunization or 60+ Years (1 [...] Documents on File Type Date Recorded Patient Community Relations Representative Expl anation Advance Directives and Living Will 04/13/2019 12:00 AM ADVANCED DIRECTIVES
[2024-10-19 10:34] LABS: Hematocrit 39.4 % (42.0-52.0); Hemoglobin 12.9 g/dL (14.0-18.0)
== END 2024-10-19 10:23 | disposition home or self-care (01) ==
PROVIDERS: PCP Internal Medicine; Visit Provider Anesthesiology
DX: D64.9 Anemia, unspecified (principal)
CPT/HCPCS: 36415; 85014; 85018

== ENCOUNTER 2024-10-24 00:38 | Day surgery (SDC) | payer MEDICARE, OTHER, SELFPAY ==
[2024-10-16 13:18] VITALS: BMI 33.5
--- OUTSIDE RECORDS SUMMARY | 2024-10-24 00:41 | XMS_ITS | Continuity of Care Document ---
Author Name [facility] Organization [facility] Care Team Providers Care District Associate Judge Name Role Phone [facility] Unavailable Unavailable Encounters Combined list of: 1) Encounters from Department of Veterans Affairs facilities going backup to the last 18 months, not all VA inpatient encounters are included; 2) Encounters from the Department of [employer] facilities going backup to 280 months. Location Location Details Encounter Type Encounter Number Reason For Visit Attending Provider ADM Date DC Date Status Disposition Source [facility] Outpatient Encounter [id number] 9 07/16 [facility] [place]
--- OUTSIDE RECORDS SUMMARY | 2024-10-24 00:41 | XMS_ITS | Clinical Summary ---
Author Organization [facility] Address [address] [place] [address] Care Team Providers Care Jewel Stripper Name Role Phone Unavailable Primary Care Provider [...] Vaccines (1 of 2) 11/14/2005 Pneumococcal Vaccine: 50+ Ye ars (1 of 1 - PCV) [...] Documents on File Type Date Recorded Patient Moving Picture Producer Expl anation Advance Directives and Living Will 04/13/2019 12:00 AM ADVANCED DIRECTIVES
--- OUTSIDE RECORDS SUMMARY | 2024-10-24 00:41 | XMS_ITS | Clinical Summary ---
Author Organization [facility] [employer] Address [address] [place] [address] Care Team Providers Care Gas Leak Inspector Name Role Phone Esvin Mckeon MD Primary Care Provider [phone] Source Comments [facility] [employer],non-owned Affiliates and Associated Physician Practices is amultiple site organization consisting of ambulatory clinics and hospital sitesin [place], [place], [place] and [place]. This disclosure is being madepursuant to the Care Everywhere program and may not contain all information available regarding this patient. 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
[2024-10-24 11:09] VITALS: BP 163/87; PULSE 68; RESP 18; TEMP 36.2; O2SAT 100
--- NOTE | 2024-10-24 11:14 | P.PNAN_ITS ---
Anes - Initial Pre Proc Eval Procedure: Operation Date: 10/24/24 12:30 Proposed Procedures p Colonoscopy - Fletcher Jeffrey MD Date/Time: 10/24/24 11:14 Surgeon: Fletchre Jeffrey MD Pre Op Diagnosis: Personal hx of colon polyps Patient Data Age: 68 Gender: M Height: 1.8 m Weight: 114.3 kg Last Vital Signs Temp 36.2 C L 10/24/24 11:09 Pulse 68 10/24/24 11:09 Resp 18 10/24/24 11:09 BP 163/87 H 10/24/24 11:09 Pulse Ox 100 10/24/24 11:09 O2 Del Method Room Air 10/24/24 11:09 Allergies Allergy/AdvReac Type Severity Reaction Status Date / Time pollen extracts Allergy Unknown Unknown Verified 10/24/24 11:08 Home Medications ?Medication ?Instructions ?Recorded ?Confirmed ?Type ascorbic acid (vitamin C) 500 mg 500 mg PO HS 07/24/19 10/18/24 History capsule omega-3 fatty acids 1,000 mg 1,000 mg PO DAILY 12/03/20 10/18/24 History capsule (Fish Oil Concentrate) cholecalciferol (vitamin D3) 50 50 mcg PO DAILY 12/30/21 10/18/24 History mcg (2,000 unit) tablet cetirizine 10 mg tablet (Zyrtec) 10 mg PO EVERY OTHER DAY 11/28/23 10/18/24 History folic acid 1 mg tablet 1 mg PO DAILY 12/05/23 10/18/24 History mecobalamin (vitamin B12) 1,000 1,000 mcg sublingual DAILY 12/05/23 10/18/24 History mcg disintegrating tablet,sublingual amlodipine 5 mg-valsartan 320 mg See Rx Instructions .Route 07/23/24 10/18/24 Rx tablet .COMPLEX #90 tabs atorvastatin 40 mg tablet See Rx Instructions .Route 09/08/24 10/18/24 Rx .COMPLEX #90 tabs Patient hx anesthesia problems: none Family hx anesthesia problems: none Results Review: All pre-operative results and documents have been reviewed as part of the pre- operative evaluation. [facility] Past Medical History Medical History BMI 35.0-35.9,adult Rash History of prostate cancer Encounter for Medicare annual wellness exam BMI 31.0-31.9,adult Pneumonia due to infectious organism Pain in foot Paronychia Hx of colonic polyps Personal history of nicotine dependence BMI 34.0-34.9,adult Ptosis of eyelid, right Change in facial mole DJD (degenerative joint disease) BMI 32.0-32.9,adult Prostate cancer Rising PSA level Elevated PSA BMI 33.0-33.9,adult Vitamin D deficiency Colon cancer screening Encounter for routine adult health examination without abnormal findings Abnormal finding of blood chemistry, unspecified KRISTY on CPAP BPH (benign prostatic hyperplasia) BMI 36.0-36.9,adult Encounter for preventive health examination 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 QUIT 2019 Alcohol intake: current Drinks per week: 1 Alcohol use details: States they last drank in March Substance use: never Substance use type: does not use Last use: 6 years ago Lack of Transportation: No Lack of Food: Never True Current Housing: I Have Housing Concerned About Future Housing: No Difficulty Paying Gas/Electric Bills: No Difficulty Paying for Meds: No Education: Associate Degree Difficulty w/ Childcare or Family Care: No Living arrangements: with family Additional living arrangements comments: Gender identity (if verbalized by the patient): Female Spiritual care concerns: No Anes - Eval Final PreProcedure Day of Procedure 10/24/24 11:14 Patient weight: obese Heart: regular rate and rhythm Lungs: clear to auscultation Airway: Mallampati scale class II Neurological: alert and oriented Last oral intake: >/= 8 hours ASA classification: III Emergent: no Anesthetic plan: proceed Anesthesia type and monitoring: general GIVS and standard monitoring Results Review: All pre-operative results and documents have been reviewed as part of the pre- operative evaluation. Informed Consent: The patient's anesthetic plan and its attendant risks and benefits were discussed with the patient/family/POA. Questions were solicited and answers provided to the satisfaction of the patient/family/POA.
[2024-10-24] MEDS: LACTATED RINGERS 1,000 ML 150 ML IV CONT (11:20)
--- NOTE | 2024-10-24 12:17 | PM.IMHP ---
H&P: HPI History of Present Illness Date/Time: 10/24/24 12:17 Chief Complaint: history of colon polyps Narrative: The patient has a history of colonic polyps, the last colonoscopy was 5 years ago. Review of Systems Review of Systems: All systems reviewed & are unremarkable except as noted in HPI and below PMFSH Past Medical History Medical History BMI 35.0-35.9,adult Rash History of prostate cancer Encounter for Medicare annual wellness exam BMI 31.0-31.9,adult Pneumonia due to infectious organism Pain in foot Paronychia Hx of colonic polyps Personal history of nicotine dependence BMI 34.0-34.9,adult Ptosis of eyelid, right Change in facial mole DJD (degenerative joint disease) BMI 32.0-32.9,adult Prostate cancer Rising PSA level Elevated PSA BMI 33.0-33.9,adult Vitamin D deficiency Colon cancer screening Encounter for routine adult health examination without abnormal findings Abnormal finding of blood chemistry, unspecified KRISTY on CPAP BPH (benign prostatic hyperplasia) BMI 36.0-36.9,adult Encounter for preventive health examination 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 QUIT 2020 Alcohol intake: current Drinks per week: 1 Alcohol use details: States they last drank in March Substance use: never Substance use type: does not use Last use: 6 years ago Lack of Transportation: No Lack of Food: Never True Current Housing: I Have Housing Concerned About Future Housing: No Difficulty Paying Gas/Electric Bills: No Difficulty Paying for Meds: No Education: Associate Degree Difficulty w/ Childcare or Family Care: No Living arrangements: with family Additional living arrangements comments: Gender identity (if verbalized by the patient): Female Spiritual care concerns: No Meds Home Medications and Allergies Home Medications ?Medication ?Instructions ?Recorded ?Confirmed ?Type ascorbic acid (vitamin C) 500 mg 500 mg PO HS 07/24/19 10/18/24 History capsule omega-3 fatty acids 1,000 mg 1,000 mg PO DAILY 12/03/20 10/18/24 History capsule (Fish Oil Concentrate) cholecalciferol (vitamin D3) 50 50 mcg PO DAILY 12/30/21 10/18/24 History mcg (2,000 unit) tablet cetirizine 10 mg tablet (Zyrtec) 10 mg PO EVERY OTHER DAY 11/28/23 10/18/24 History folic acid 1 mg tablet 1 mg PO DAILY 12/05/23 10/18/24 History mecobalamin (vitamin B12) 1,000 1,000 mcg sublingual DAILY 12/05/23 10/18/24 History mcg disintegrating tablet,sublingual amlodipine 5 mg-valsartan 320 mg See Rx Instructions .Route 07/23/24 10/18/24 Rx tablet .COMPLEX #90 tabs atorvastatin 40 mg tablet See Rx Instructions .Route 09/08/24 10/18/24 Rx .COMPLEX #90 tabs Allergies Allergy/AdvReac Type Severity Reaction Status Date / Time pollen extracts Allergy Unknown Unknown Verified 10/24/24 11:08 Vital Signs Vital Signs - 24 hr 10/24/24 11:09 Temperature 97.1 F L Pulse Rate 68 Respiratory Rate 18 Blood Pressure 163/87 H Pulse Oximetry 100 Oxygen Delivery Room Air Exam Const: General: cooperative and healthy appearing Resp: Effort & Inspection: normal respiratory effort and able to speak in complete sentences Auscultation: clear to auscultation bilaterally Cardio: Rate: regular rate Rhythm: regular rhythm GI: Inspection: normal to inspection GI Palp: No No hepatosplenomegaly present Auscultation: normal bowel sounds Rectal Exam: deferred Skin: General skin exam: normal color Psych: Appearance: grossly normal Mental Status: mental status grossly normal Assessment and Plan Assessment and plan (1) Colon cancer screening: Code(s): Z12.11 - Encounter for screening for malignant neoplasm of colon Status: Acute Assessment and Plan: The patient is deemed a good candidate for the procedure. Consent signed. Will proceed.
[2024-10-24 12:53] VITALS: BP 128/76; PULSE 70; RESP 14; O2SAT 100
[2024-10-24 13:03] VITALS: BP 127/79; PULSE 66; RESP 21; O2SAT 100
[2024-10-24 13:13] VITALS: BP 162/84; PULSE 61; RESP 16; O2SAT 100
== END 2024-10-24 13:43 | disposition home or self-care (01) ==
PROVIDERS: PCP Internal Medicine; Referring Provider Internal Medicine Gastroenterology; Visit Provider Internal Medicine Gastroenterology
PROC: 0DJD8ZZ Inspection of Lower Intestinal Tract, Via Natural or Artificial Opening Endoscopic (ICD-10-PCS; CPT 45378; principal; 2024-10-24 12:30)
DX: Z12.11 Encounter for screening for malignant neoplasm of colon (principal); D12.0 Benign neoplasm of cecum; D12.2 Benign neoplasm of ascending colon; K57.30 Diverticulosis of large intestine without perforation or abscess without bleeding; E78.5 Hyperlipidemia, unspecified; I10 Essential (primary) hypertension; E55.9 Vitamin D deficiency, unspecified; G47.33 Obstructive sleep apnea (adult) (pediatric); M19.90 Unspecified osteoarthritis, unspecified site; R73.02 Impaired glucose tolerance (oral); E66.9 Obesity, unspecified; Z68.35 Body mass index [BMI] 35.0-35.9, adult; Z79.899 Other long term (current) drug therapy; Z99.89 Dependence on other enabling machines and devices; Z98.890 Other specified postprocedural states; Z85.46 Personal history of malignant neoplasm of prostate; Z87.891 Personal history of nicotine dependence
CPT/HCPCS: 45390; 88305; J2704; J7120

== ENCOUNTER 2024-10-30 00:43 | Day surgery (SDC) | payer MEDICARE, OTHER, SELFPAY ==
[2024-10-18 16:39] VITALS: BMI 33.5
--- NOTE | 2024-10-18 16:40 | PC.NURSE ---
Report to the Outpatient Waiting Room, entrance under the green pavilion located off [facility], at time ___0645____ on date ___10/30/2024____. Planned Procedure Time: ___0845 .? Time changes happen often and if your time is changed the preop area will call you the afternoon before. - You and your visitor will be asked to self-screen and do not enter if you have any COVID symptoms. Please call surgeon if you need to reschedule. - A mask is optional within the hospital at this time. - NPO (No food or drink) 8 hours prior to procedure and no smoking, or chewing tobacco (or any form of nicotine). No chewing gum, candy or mints. Take only the following medications with a SIP of water on the morning of surgery: none DO NOT STOP ANY OF YOUR OTHER PRESCRIPTION MEDICATIONS PRIOR TO SURGERY EXCEPT THE FOLLOWING Hold all vitamins and supplements for 3 days per anesthesiologist. Medications to discontinue per physician hold amlodipine-valsartan 5-320 mg tablet day of surgery Please no make-up, nail algerian, hairspray, perfume, deodorant, or body powder the day of surgery.? No jewelry (including any body piercings) or valuables the day of surgery, leave them at home.? Please take a shower or bath the night before, or the morning of, surgery with an antibacterial soap.? Wear comfortable, loose fitting clothing.? - Jewelry must be removed prior to entering the operating room.? Rings and piercings that are not removed may be cut off. - The hospital will not accept responsibility for valuables.? - Please leave all valuables, including medications, at home the day of surgery. If you are going home after surgery, a licensed sprinkler truck driver must drive you home.? - NO public transportation without another adult if you receive anesthesia. - We recommend that an adult stay with you for 24 hours following discharge. - We also recommend that you do not drive, make important decision, drink alcoholic beverages, or take any drugs that were not prescribed by your health care provider for at least 24 hours after your discharge time. Follow any additional instructions given to you from your surgeon. Telephone instructions given to ____Aidan and asked if any additional questions and then verbalized understanding. Patient advised to call surgeon office or pre surgery nurse liaison [phone] if any additional questions.
--- OUTSIDE RECORDS SUMMARY | 2024-10-30 00:49 | XMS_ITS | Continuity of Care Document ---
Author Organization [facility] Address [address] [place] [address] Phone Care Team Providers Care Grain Elevator Worker Name Role Phone Lorenzo OD, Rip Unavailable Unavailable Advance Directives Directive Yes / No Effective Date File Name No Information Encounters Encounter Description Practice Location Reason(s) For Visit Diagnoses Date Provider Providers Copied on Encounter [facility], [address], [place], [place], [id number], [place] tel:[phone] [facility] [place] No Information Nov-0 5-200 2 Lorenzo OD Rip. [address], [place], [address], [place]. tel:[phone] Family History Family Member Type Diagnosis Age [...]
--- OUTSIDE RECORDS SUMMARY | 2024-10-30 00:49 | XMS_ITS | Clinical Summary ---
Author Organization [facility] Address [address] [place] [address] Care Team Providers Care Assessment Nurse Practitioner Name Role Phone Unavailable Primary Care Provider [...] Td Vaccines ( 1 - Tdap) 11/14/1974 Pneumococcal Vaccine: 50+ Ye ars (1 of 1 - PCV) 11/14/2005 Zoster Vaccines (1 of 2) 11/14/2005 COVID-19 Vaccine ( - 2023-2 5 season) 2024 RSV Immunization [...] Documents on File Type Date Recorded Patient Soap Press Feeder Expl anation Advance Directives and Living Will 04/13/2019 12:00 AM ADVANCED DIRECTIVES
--- OUTSIDE RECORDS SUMMARY | 2024-10-30 00:49 | XMS_ITS | Continuity of Care Document ---
Author Name [facility] Organization [facility] Care Team Providers Care Material Flow Analyst Name Role Phone [facility] Unavailable Unavailable Medications Combined list of outpatient [...] ORAL, MYLAN, 30 ea. BOTTLE Cancele d [id number] : 2023 0 Pharmac y Data Transac tion Service Facilit y AMLODIPINE- VALSARTAN (amlodipine besylate/va lsartan), 5 MG-320MG, TABLET, ORAL, MYLAN, 30 ea. BOTTLE Cancele d [id number] : 2023 0 Pharmac y Data Transac tion Service Facilit y ATORVASTATI N CALCIUM (atorvastat in calcium), 40 MG, TABLET, ORAL, ZYDUS PHARMACEU, 1000 ea. BOTTLE Active [id number] 4 2023 90 Pharmac y Data Transac tion Service Facilit y TRIAMCINOLO NE ACETONIDE (TRIAMCINOL ONE ACETONIDE), 0.1%, CREAM(GM), TOPICAL, FOUGERA, 80 g JAR Active [id number] 4 2023 80 Pharmac y Data Transac tion Service Facilit y TRIAMCINOLO NE ACETONIDE (TRIAMCINOL ONE ACETONIDE), 0.1%, CREAM(GM), TOPICAL, FOUGERA, 80 g JAR Active [id number] 4 2023 80 Pharmac y Data Transac tion Service Facilit y TRIAMCINOLO NE ACETONIDE (TRIAMCINOL ONE ACETONIDE), 0.1%, CREAM(GM), TOPICAL, FOUGERA, 80 g JAR Active [id number] 4 2023 80 Pharmac y Data Transac tion Service Facilit y TRIAMCINOLO NE ACETONIDE (TRIAMCINOL ONE ACETONIDE), 0.1%, CREAM(GM), TOPICAL, FOUGERA, 80 g JAR Active [id number] 4 2023 80 Pharmac y Data Transac tion Service Facilit y TRIAMCINOLO NE ACETONIDE (TRIAMCINOL ONE ACETONIDE), 0.1%, CREAM(GM), TOPICAL, FOUGERA, 80 g JAR Active [id number] 4 2023 80 Pharmac y Data Transac tion Service Facilit y Allergies, Adverse Reactions, Alerts Combined list of allergies from Department of Defense and Veterans Affairs facilities. It does not include entries that were removed or entered in error. Substance Category Reaction Severity Reaction type Status Date Reported Comments Source No Known Allergies Drug allergy (disorder) active 2010 [facility] [place] [facility] ([facility] Immunizations Combined list of available immunizations from the Department of Defense and Veterans Affairs facilities. Immunization Series Date Given Administered By Site Reaction Lot Number CVX Code Drug French Lecturer Status Comments Source Pneumococcal conjugate PCV20, polysaccharid e [id number] conjugate, adjuvant, PF 2022 () Not Given Pneumococ jasmin conjugate PCV20, polysacch aride [id number] conjugate , adjuvant, PF DoD pneumococcal polysaccharid e PPV23 2020 [facility], () [...] to the last 18 months, not all [place] inpatient encounters are included; 2) Encounters from the Department of Defense facilities going backup to 280 months. Location Location Details Encounter Type Encounter Number Reason For Visit Attending Provider ADM Date DC Date Status Disposition Source [facility] Outpatient Encounter [id number] 07/16 [facility] Social History Combined list of available smoking, tobacco, and other social history from Department of Defense and Veterans Affairs facilities. Social History Type Response Date Comment [facility] This section is an empty social history section. DoD
--- OUTSIDE RECORDS SUMMARY | 2024-10-30 00:49 | XMS_ITS | Clinical Summary ---
Author Organization [facility] [employer] Address [address] [place] [address] Care Team Providers Care Admeasurer Name Role Phone Esvin Mckeon MD Primary Care Provider [phone] Source Comments [facility] [employer],non-owned Affiliates and Associated Physician Practices is amultiple site organization consisting of ambulatory clinics and hospital sitesin [place], [place], [place] and [place]. This disclosure is being madepursuant to the Care Everywhere program and may not contain all information available regarding this patient. 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
--- NOTE | 2024-10-30 06:53 | WPDHPUPDATE1 ---
History and Physical Update Update Date/Time: 10/30/24 06:53 Patient seen and examined in pre-operative holding area. No interval change in medical history or symptoms. Patient recalls previous discussion of benefits and alternatives to procedure. Continues to desire to proceed with left middle and small finger mucous cyst excision. Reviewed procedure, post-op expectations and risks including but not limited to bleeding, infection, injury to tendon/nerve/vessel, decreased hand function, stiffness, RSD, no change or worsening of symptoms, recurrence. I discussed the possible use of assistants and their participation in the case. Patient stated understanding and signed the consent form wishing to proceed.
--- NOTE | 2024-10-30 06:54 | W.PM.PROC2 ---
Procedure Note - Detailed Date of Procedure 10/30/24 Pre-op Diagnosis Digital Mucous Cyst left Small Finger, Middle Finger Post-op Diagnosis Same Procedure Performed left middl and small finger mucous cyst exccision with adjacent tissue transfer Surgeon Jaquelin Obrien MD Saw Feeder tim james pa-c Anesthesia MAC Description of Procedure INFORMED CONSENT: The patient was seen and examined and marked in the pre-op area.? The patient signed the consent form. PROCEDURE IN DETAIL:The patient taken back to OR on the stretcher in supine position. Time out performed with anesthesia, surgeon and staff agreeing on patient's name site and surgery to be performed SCDs were placed on the lower extremities and inflated. A tourniquet was placed on {right} upper extremity and antibiotics given IV After anesthesia administered sedation I injected {6}cc 1%lidoand 0.5% marcaine plain for digital block in the palm The?{left upper extremity}?was prepped and draped in sterile fashion the??{left upper extremity} was? exsanguinated with Esmarch bandage and tourniquet inflated to 250mmHg I took my attention 1st to the left middle finger where I proceeded with making a wedge incision around the affected tissue at the proximal nail fold through skin and dermis with 15 blade scalpel. This incision was carried back to the IP joint and skin flaps elevated above the cystic mass. I proceeded with circumferential dissection of the cystic mass and suspected stalk back to the D IP joint. The cyst was transected with bipolar cautery. I identified a small osteophyte originating from the middle phalanx. I reflected periosteum and rongeured this osteophyte until smooth. I irrigated with normal saline. I repaired the capsular defect with 5 0 Vicryl suture. I was unable to close the skin defect at the proximal nail fold primarily so I extended my incision proximally to create a larger rotation advancement flap. Doing this allowed reconstruction of the proximal nail fold and the flap was secured with 4-0 and 5 0 chromic suture. Next I took my attention to the left small finger cyst where I proceeded with making an elliptical incision around the thinned affected tissue through skin and dermis. The incision was extended proximally and distally and skin flaps created with 15 blade scalpel. I proceeded with dissecting this mass off of the D IP joint capsule and cauterized the base with bipolar cautery. I irrigated with normal saline. Again, due to the size of the skin defect I was unable to close this primarily even with wide undermining. I extended my incision proximally in a curvilinear fashion to create another rotation advancement flap. This flap was rotated into place and secured with 4-0 chromic suture. A dressing of xeroform, 4x4, and tube gauze was applied after the tourniquet was let down noting the hand was warm and well perfused. The patient was then awaken from anesthesia and transferred to the recovery room in stable condition.? Complications - none EBL- 0cc Disposition - home in stable conditions tim james pa-c was essential for positioning, retraction, closure and dressing placement [facility] Billing Surgery - Charge Forward: Surgery Billing ([id number] same for tim adding )
[2024-10-30 07:00] VITALS: BP 162/80; PULSE 72; RESP 16; TEMP 36.4; O2SAT 98
[2024-10-30] MEDS: LACTATED RINGERS 1,000 ML 30 ML IV CONT (07:00)
--- NOTE | 2024-10-30 07:09 | WPDANESEPPF ---
Anes - Initial Pre Proc Eval Procedure: Operation Date: 10/30/24 08:15 Proposed Procedures p Excision Mucous Cyst Left Small Finger and Middle Finger - Jaquelin Obrien MD Date/Time: 10/30/24 07:09 Surgeon: Jaquelin Obrien MD Pre Op Diagnosis: Digital Mucous Cyst Small Finger, Middle Finger Patient Data Age: 68 Gender: M Height: 1.8 m Weight: 115.5 kg Last Vital Signs Temp 36.4 C L 10/30/24 07:00 Pulse 72 10/30/24 07:00 Resp 16 10/30/24 07:00 BP 162/80 H 10/30/24 07:00 Pulse Ox 98 10/30/24 07:00 O2 Del Method Room Air 10/30/24 07:00 Allergies Allergy/AdvReac Type Severity Reaction Status Date / Time pollen extracts Allergy Unknown Unknown Verified 10/30/24 07:07 Home Medications ?Medication ?Instructions ?Recorded ?Confirmed ?Type ascorbic acid (vitamin C) 500 mg 500 mg PO HS 07/24/19 10/30/24 History capsule omega-3 fatty acids 1,000 mg 1,000 mg PO DAILY 12/03/20 10/30/24 History capsule (Fish Oil Concentrate) cholecalciferol (vitamin D3) 50 50 mcg PO DAILY 12/30/21 10/30/24 History mcg (2,000 unit) tablet cetirizine 10 mg tablet (Zyrtec) 10 mg PO EVERY OTHER DAY 11/28/23 10/18/24 History folic acid 1 mg tablet 1 mg PO DAILY 12/05/23 10/30/24 History mecobalamin (vitamin B12) 1,000 1,000 mcg sublingual DAILY 12/05/23 10/30/24 History mcg disintegrating tablet,sublingual amlodipine 5 mg-valsartan 320 mg See Rx Instructions .Route 07/23/24 10/30/24 Rx tablet .COMPLEX #90 tabs atorvastatin 40 mg tablet See Rx Instructions .Route 09/08/24 10/30/24 Rx .COMPLEX #90 tabs Patient hx anesthesia problems: none Family hx anesthesia problems: none Results Review: All pre-operative results and documents have been reviewed as part of the pre-operative evaluation. [facility] Past Medical History Medical History BMI 35.0-35.9,adult Rash History of prostate cancer Encounter for Medicare annual wellness exam BMI 31.0-31.9,adult Pneumonia due to infectious organism Pain in foot Paronychia Hx of colonic polyps Personal history of nicotine dependence BMI 34.0-34.9,adult Ptosis of eyelid, right Change in facial mole DJD (degenerative joint disease) BMI 32.0-32.9,adult Prostate cancer Rising PSA level Elevated PSA BMI 33.0-33.9,adult Vitamin D deficiency Colon cancer screening Encounter for routine adult health examination without abnormal findings Abnormal finding of blood chemistry, unspecified KRISTY on CPAP BPH (benign prostatic hyperplasia) BMI 36.0-36.9,adult Encounter for preventive health examination On salvage 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 drug 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 QUIT 2020 Alcohol intake: current Drinks per week: 1 Alcohol use details: States they last drank in March Substance use: never Substance use type: does not use Last use: 6 years ago Lack of Transportation: No Lack of Food: Never True Current Housing: I Have Housing Concerned About Future Housing: No Difficulty Paying Gas/Electric Bills: No Difficulty Paying for Meds: No Education: Associate Degree Difficulty w/ Childcare or Family Care: No Living arrangements: with family Additional living arrangements comments: Gender identity (if verbalized by the patient): Female Spiritual care concerns: No Anes - Eval Final PreProcedure Day of Procedure 10/30/24 07:09 Patient weight: obese Heart: regular rate and rhythm Lungs: clear to auscultation Airway: Mallampati scale class III Neurological: alert and oriented Last oral intake: >/= 8 hours ASA classification: III Emergent: no Anesthetic plan: proceed Anesthesia type and monitoring: general GIVS and standard monitoring Results Review: All pre-operative results and documents have been reviewed as part of the pre-operative evaluation. Informed Consent: The patient's anesthetic plan and its attendant risks and benefits were discussed with the patient/family/POA. Questions were solicited and answers provided to the satisfaction of the patient/family/POA.
[2024-10-30] MEDS: LIDOCAINE 1% LOCAL INJ 10 ML VIAL INFILTRATE (07:43)
[2024-10-30] MEDS: ceFAZolin 2 GM/D5W 50 ML 2 GM/50 ML BAG IVPB (08:24)
[2024-10-30 09:06] VITALS: BP 124/80; PULSE 72; RESP 15; O2SAT 99
[2024-10-30 09:30] VITALS: BP 146/72; PULSE 72; RESP 20
[2024-10-30 10:00] VITALS: BP 164/75; PULSE 66; RESP 20
== END 2024-10-30 10:04 | disposition home or self-care (01) ==
PROVIDERS: PCP Internal Medicine; Visit Provider Plastic Surgery
PROC: (CPT 26160; principal; 2024-10-30 08:15)
DX: M67.442 Ganglion, left hand (principal); M25.742 Osteophyte, left hand; E78.5 Hyperlipidemia, unspecified; I10 Essential (primary) hypertension; N40.0 Benign prostatic hyperplasia without lower urinary tract symptoms; E55.9 Vitamin D deficiency, unspecified; G47.33 Obstructive sleep apnea (adult) (pediatric); R73.02 Impaired glucose tolerance (oral); H02.401 Unspecified ptosis of right eyelid; M19.90 Unspecified osteoarthritis, unspecified site; E66.9 Obesity, unspecified; Z68.35 Body mass index [BMI] 35.0-35.9, adult; Z79.899 Other long term (current) drug therapy; Z99.89 Dependence on other enabling machines and devices; Z98.890 Other specified postprocedural states; Z87.891 Personal history of nicotine dependence; Z86.0100 Personal history of colon polyps, unspecified; Z85.46 Personal history of malignant neoplasm of prostate
CPT/HCPCS: 26160; 26210; 14040 ×2; 88305; J0690; J2003; J2250; J2704; J3010; J7120

== ENCOUNTER 2024-12-27 07:53 | Outpatient (CLI) | payer MEDICARE, OTHER, SELFPAY ==
--- OUTSIDE RECORDS SUMMARY | 2024-12-27 07:57 | XMS_ITS | Continuity of Care Document ---
Author Name [facility] Organization [facility] Care Team Providers Care Web Marketing Assistant Name Role Phone [facility] Unavailable Unavailable Medications Combined list of outpatient medications from Department of Defense and Veterans Affairs facilities.Medications provided include 1) outpatient medications from the last 15 months, and 2) patient-reported medications. Medication Details Route Status Patient Instructions Prescription Expires Prescription Number Last Dispense Date Ordering Provider Order Date Order Qty Source AMLODIPINE- VALSARTAN (amlodipine besylate/wv lsartan), 5 MG-320MG, TABLET, ORAL, MYLAN, 30 ea. BOTTLE Cancele d [id number] : 2023 0 Pharmac y Data Transac tion Service Facilit y ATORVASTATI N CALCIUM (atorvastat in calcium), 40 MG, TABLET, ORAL, ZYDUS PHARMACEU, 1000 ea. BOTTLE Active [id number] 2023 90 Pharmac y Data Transac tion Service Facilit y Allergies, Adverse Reactions, Alerts Combined list of allergies from Department of Defense and Veterans Affairs facilities. It does not include entries that were removed or entered in error. Substance Category Reaction Severity Reaction type Status Date Reported Comments Source No Known Allergies Drug allergy (disorder) active 2010 [facility] [place] [facility] ([facility] Immunizations Combined list of available immunizations from the Department of Defense and Veterans Affairs facilities. Immunization Series Date Given Administered By Site Reaction Lot Number CVX Code Drug Certified Surgical First Assistant Status Comments Source Pneumococcal conjugate PCV20, polysaccharid e [id number] conjugate, adjuvant, PF 2022 () Not Given Pneumococ jasmin conjugate PCV20, polysacch aride [id number] conjugate , adjuvant, PF [facility] pneumococcal polysaccharid [...] ADM Date DC Date Status Disposition Source [facility] Outpatient Encounter [id number] 07/16 [facility] Social History Combined list of available smoking, tobacco, and other social history from Department of Defense and Veterans Affairs facilities. Social History Type Response Date Comment Sourc e This section is an empty social history section. [facility]
--- OUTSIDE RECORDS SUMMARY | 2024-12-27 07:57 | XMS_ITS | Clinical Summary ---
Author Organization [facility] Address [address] [place] [address] Care Team Providers Care Deck Engine Operator Name Role Phone Esvin Mckeon MD Primary Care Provider [phone] Source Comments [facility],non-owned Affiliates and Associated Physician Practices is amultiple site organization consisting of ambulatory clinics and hospital sitesin [place], [place], [place] and [place]. This disclosure is being madepursuant to the Care Everywhere program and may not contain all information available regarding this patient. 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 Gender Identity Not on file Sexual Orientation [...] age to complete this topic Insurance MEDICARE [employer] MEDICARE SELF PAY NO INSURANCE Member Subscriber Plan / Payer (Ef fective for All Dates) Name:Judit Velazquez Member ID:Not on file Relation to Subscriber:Not on file Name:JUDIT VELAZQUEZ Subscriber ID:Not on file (Home) Address: [facility] [place] [address] Payer ID:Not on file Group ID:Not on file Type:Self Pay Address: [place], [place] Care Teams Deck Engine Operator Relationship Specialty Start Date End Date Esvin Mckeon MD [address] [facility] [address] [place] [address] PCP - General 04/28/21
--- OUTSIDE RECORDS SUMMARY | 2024-12-27 07:57 | XMS_ITS | Continuity of Care Document ---
Author Organization [facility] Address [address] [place] [address] Phone Care Team Providers Care Cooker Process Cheese Name Role Phone Lorenzo OD, Rip Unavailable Unavailable Advance Directives Directive Yes / No Effective Date File Name No Information Encounters Encounter Description Practice Location Reason(s) For Visit Diagnoses Date Provider Providers Copied on Encounter [facility], [address], [place], [place], [id number], [place] tel:[phone] [facility] No Information Nov-0 5-200 2 Lorenzo OD Rip. [address] , [address], [place], [address], [place]. tel:[phone] Family History Family Member Type Diagnosis Age [...]
[2024-12-27 08:24] LABS: Basophils Percent Auto 0.3 % (0.2-1.2); Eosinophils Absolute Auto 0.2 K/mm3 (0-0.3); Eosinophils Percent Auto 3.4 % (0-4.4); Hematocrit 38.8 % (42.0-52.0); Hemoglobin 12.9 g/dL (14.0-18.0); Immature Granulocyte Absolute 0.04 K/mm3 (0.00-0.031); Immature Granulocyte Percent A 0.6 % (0-0.5); Lymphocytes Absolute Auto 1.75 K/mm3 (0.9-3.2); Lymphocytes Percent Auto 25.7 % (18.3-44.2); Mean Corpuscular HGB Conc 33.2 g/dl (32-36); Mean Corpuscular Hemoglobin 29.5 pg (26-34); Mean Corpuscular Volume 88.8 fl (80-100); Mean Platelet Volume 9.5 fl (7.4-10.4); Monocytes Absolute Auto 0.5 K/mm3 (0.1-0.6); Neutrophils Absolute Auto 4.3 K/mm3 (1.3-6.7); Platelet Count Result 181 k/mm3 (150-375); Red Blood Count 4.37 M/mm3 (4.6-6.20); Red Cell Distribution Width 13.2 % (11.5-14.5); White Blood Count 6.8 K/mm3 (4.5-10.0)
[2024-12-27 08:33] LABS: Alanine Aminotransferase 25 U/L (6-50); Albumin Level 4.2 g/dL (3.5-5.1); Alkaline Phosphatase 67 U/L (38-126); Anion Gap 7 mmol/L (4-12); Aspartate Amino Transferase 25 U/L (17-59); Bilirubin,Total 1.3 mg/dL (0.2-1.3); Blood Urea Nitrogen 18 mg/dL (9-20); Calcium 9.3 mg/dL (8.4-10.2); Carbon Dioxide 27 mmol/L (22-30); Chloride 105 mmol/L (98-107); Cholesterol 131 mg/dL (0-200); Estimated Glomerular Filt Rate > 60; Glucose 107 mg/dL (65-110); HDL Direct 37 mg/dL; Potassium 4.2 mmol/L (3.4-5.0); Sodium 139 mmol/L (137-145); Total Protein 6.8 g/dL (6.3-8.2); Triglycerides 82 mg/dL (<150)
[2024-12-27 08:44] LABS: LDL Cholesterol Direct 66 mg/dL
[2024-12-27 08:46] LABS: Hemoglobin A1C 5.4 % (<5.7)
== END 2024-12-27 07:54 | disposition home or self-care (01) ==
LOC: ANHLAB 07:54
PROVIDERS: PCP Internal Medicine; Visit Provider Internal Medicine
DX: E78.2 Mixed hyperlipidemia (principal); R73.02 Impaired glucose tolerance (oral); I10 Essential (primary) hypertension
CPT/HCPCS: 36415; 80053; 80061; 83036; 85025

== ENCOUNTER 2024-12-30 09:46 | Outpatient (CLI) | payer MEDICARE, OTHER, SELFPAY ==
--- NOTE | ~2024-12-30 | XR_ITS ---
XR knee LT 3V Ordering provider: Esvin Mckeon MD History: . M79.673 - Pain in unspecified foot . Comparison: None. FINDINGS: BONES: No acute fracture or dislocation. JOINT SPACES: Normal. Ossification of the medial collateral ligament is seen superiorly. SOFT TISSUES: Normal. IMPRESSION: No acute osseous abnormality left knee. Reviewed, dictated and finalized at location A.
--- NOTE | ~2024-12-30 | XR_ITS ---
EXAM/ PROCEDURE: XR foot LT min 3V - 12/30/2024 10:10 CDT HISTORY: 69 years old Male with M79.673 - Pain in unspecified foot COMPARISON: None available TECHNIQUE: 5 view(s) FINDINGS/ IMPRESSION: There are no fractures or dislocations.Joint space narrowing, subchondral sclerosis, subchondral cyst formation and osteophyte formation, compatible with mild osteoarthritis. Reviewed, dictated and finalized at location A.
[2024-12-30 10:32] LABS: Uric Acid 7.9 mg/dL (3.5-8.5)
== END 2024-12-30 09:47 | disposition home or self-care (01) ==
PROVIDERS: PCP Internal Medicine; Visit Provider Internal Medicine
DX: M79.672 Pain in left foot (principal); M25.562 Pain in left knee; R60.9 Edema, unspecified
CPT/HCPCS: 36415; 73562; 73630; 84550

== ENCOUNTER 2025-03-04 07:43 | Outpatient (CLI) | payer MEDICARE, OTHER, SELFPAY ==
--- NOTE | ~2025-03-04 | XR_ITS ---
XR knee LT min 4V 03/04/2025 08:22 Indication: Left knee pain Procedure: 4 views left knee Comparison: 12/30/2024 Findings: There is mild tricompartment osteoarthritis with small joint effusion. No acute fracture or traumatic malalignment. Mild ossification medial collateral ligament at the femoral attachment. Impression: 1: Mild tricompartment osteoarthritis Reviewed, dictated and finalized at location O. Impression: 1: Mild tricompartment osteoarthritis
--- OUTSIDE RECORDS SUMMARY | 2025-03-04 07:45 | XMS_ITS | Continuity of Care Document ---
Author Name [facility] Organization [facility] Care Team Providers Care Sand Cutting Machine Operator Name Role Phone [facility] Unavailable Unavailable Allergies, Adverse Reactions, Alerts Combined list of allergies from Department of Defense and Veterans Affairs facilities. It does not include entries that were removed or entered in error. Substance Category Reaction Severity Reaction type Status Date Reported Comments Source No Known Allergies Drug allergy (disorder) active 2010 [facility] [place] [facility] [place] Immunizations Combined list of available immunizations from the Department of Defense and Veterans Affairs facilities. Immunization Series Date Given Administered By Site Reaction Lot Number CVX Code Drug Ring Sewer Status Comments Source Pneumococcal conjugate PCV20, polysaccharid e [id number] conjugate, adjuvant, PF 2022 () Not Given Pneumococ jasmin conjugate PCV20, polysacch aride [id number] conjugate , adjuvant, PF [facility] pneumococcal polysaccharid e PPV23 2020 [facility], () Not Given pneumococ jasmin polysacch aride PPV23 [facility] influenza, injectable, quadrivalent, preservative free 2019 [facility], () Not Given influenza , injectabl e, quadrival ent, preservat az free [facility] zoster recombinant 2019 [facility], () Not Given zoster recombina nt [facility] zoster recombinant 2019 [facility], () Not Given zoster recombina nt [facility] Encounters Combined list of: 1) Encounters from Department of Veterans Affairs facilities going backup to the last 18 months, not all VA inpatient encounters are included; 2) Encounters from the Department of [facility] facilities going backup to 280 months. Location Location Details Encounter Type Encounter Number Reason For Visit Attending Provider ADM Date DC Date Status Disposition Source [facility] Outpatient Encounter [id number] 07/16 [facility] Social History Combined list of available smoking, tobacco, and other social history from Department of Defense and Veterans Affairs facilities. Social History Type Response Date Comment Sour e This section is an empty social history section. [facility]
--- OUTSIDE RECORDS SUMMARY | 2025-03-04 07:47 | XMS_ITS | Clinical Summary ---
Author Organization [facility] Address [address] [place] [address] Care Team Providers Care Front Line Supervisor Name Role Phone Unavailable Primary Care Provider [...] Documents on File Type Date Recorded Patient Inspector Exhaust Emissions Expl anation Advance Directives and Living Will 04/13/2019 12:00 AM ADVANCED DIRECTIVES
--- OUTSIDE RECORDS SUMMARY | 2025-03-04 07:47 | XMS_ITS | Clinical Summary ---
Author Organization [facility] Address [address] [place] [address] Care Team Providers Care Nut And Bolt Assembler Name Role Phone Esvin Mckeon MD Primary Care Provider [phone] Source Comments [facility],non-owned Affiliates and Associated Physician Practices is amultiple site organization consisting of ambulatory clinics and hospital sitesin [place], [place], [place] and [place]. This disclosure is being madepursuant to the Care Everywhere program and may not contain all information available regarding this patient. 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 Gender Identity Not on file Sexual Orientation [...] season) 2024 DEPRESSION SCREENING 07/10/2024 INFLUENZA VACCINE (#1) 2025 Respiratory Syncytial Virus (RSV) Vaccine Pt: [...] age to complete this topic Insurance MEDICARE [facility] MEDICARE SELF PAY NO INSURANCE Member Subscriber Plan / Payer (Ef fective for All Dates) Name:Judit Velazquez Member ID:Not on file Relation to Subscriber:Not on file Name:JUDIT VELAZQUEZ Subscriber ID:Not on file (Home) Address: [facility] [place] [address] Payer ID:Not on file Group ID:Not on file Type:Self Pay Address: [place], [place] Care Teams Nut And Bolt Assembler Relationship Specialty Start Date End Date Esvin Mckeon MD [address] [facility] [address] [place] [address] PCP - General 04/28/21
== END 2025-03-04 07:44 | disposition home or self-care (01) ==
PROVIDERS: PCP Internal Medicine; Visit Provider Orthopaedic Surgery
DX: M25.562 Pain in left knee (principal); M17.12 Unilateral primary osteoarthritis, left knee
CPT/HCPCS: 73564

== ENCOUNTER 2025-05-21 11:06 | Outpatient (CLI) | payer MEDICARE, OTHER, SELFPAY ==
--- OUTSIDE RECORDS SUMMARY | 2002-05-14 09:15 | XMS_ITS | Continuity of Care Document ---
Author Organization [facility] Address [address] [place] [address] Phone Care Team Providers Care Ear Nose Throat Physician Name Role Phone Lorenzo OD, Rip Unavailable Unavailable Advance Directives Directive Yes / No Effective Date File Name No Information Encounters Encounter Description Practice Location Reason(s) For Visit Diagnoses Date Provider Providers Copied on Encounter [facility], [address], [place], [place], [id number], [place] tel:[phone] [facility] No Information Nov-0 5-200 2 Lorenzo OD Rip. [address] , [address], [place], [address], [place]. tel:[phone] Family History Family Member Type Diagnosis Age At Onset No Information Payers Payer name Insurance type Covered green party ID Authoriza tion(s) No Information Social History Type Description Quantity Date Captured Comments Sex Male Smoking Status No Information Chief Complaint And Reason For Visit No Information Reason For Referral Reason For Referral No Information History Of Present Illness Encounter Date Complaint History Of Prese nt Illness No Information Functional Status Date Functional Assessmen t No Information Instructions Date Instruction Additional Infor mation No Information Assessments Type Assessment Date No Information Patient Care Teams Name Effective Dates (start - stop) Status Members No Information
[2025-05-21 11:48] LABS: Hematocrit 34.5 % (42.0-52.0); Hemoglobin 11.6 g/dL (14.0-18.0); Immature Granulocyte Percent A 0.5 % (0-0.5); Lymphocytes Absolute Auto 1.73 K/mm3 (0.9-3.2); Mean Corpuscular HGB Conc 33.6 g/dl (32-36); Mean Corpuscular Hemoglobin 30.6 pg (26-34); Mean Corpuscular Volume 91.0 fl (80-100); Nucleated Red Blood Cells Absolute Auto 0.000 K/mm3 (0.0-0.012); Nucleated Red Blood Cells Perc 0.0 % (0.0-0.2); Platelet Count Result 163 k/mm3 (150-375); Red Blood Count 3.79 M/mm3 (4.6-6.20); White Blood Count 6.2 K/mm3 (4.5-10.0)
[2025-05-21 12:19] LABS: Alanine Aminotransferase 32 U/L (6-50); Albumin Level 4.2 g/dL (3.5-5.1); Alkaline Phosphatase 80 U/L (38-126); Anion Gap 6 mmol/L (4-12); Aspartate Amino Transferase 28 U/L (17-59); Bilirubin,Total 1.4 mg/dL (0.2-1.3); Blood Urea Nitrogen 27 mg/dL (9-20); Calcium 9.4 mg/dL (8.4-10.2); Carbon Dioxide 30 mmol/L (22-30); Chloride 103 mmol/L (98-107); Cholesterol 134 mg/dL (0-200); Estimated Glomerular Filt Rate 56; Glucose 97 mg/dL (65-110); HDL Direct 38 mg/dL; Potassium 3.9 mmol/L (3.4-5.0); Sodium 139 mmol/L (137-145); Total Protein 6.8 g/dL (6.3-8.2); Triglycerides 68 mg/dL (<150)
[2025-05-21 12:28] LABS: Free T4 Free Thyroxine 0.96 ng/dL (0.78-2.19)
--- OUTSIDE RECORDS SUMMARY | 2025-05-21 12:50 | XMS_ITS | Clinical Summary ---
Author Organization [facility] Address [address] [place] [address] Care Team Providers Care Clutch Rebuilder Name Role Phone Esvin Mckeon MD Primary Care Provider [phone] Source Comments [facility],non-owned Affiliates and Associated Physician Practices is amultiple site organization consisting of ambulatory clinics and hospital sitesin [place], [place], [place] and [place]. This disclosure is being madepursuant to the Care Everywhere program and may not contain all information available regarding this patient. 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 Gender Identity Not on file Sexual Orientation [...] 11/14/2005 ZOSTER VACCINE (1 of 2) 11/14/2005 DEPRESSION SCREENING 07/10/2024 COVID-19 VACCINE (1 - 2023-2 5 season) 2025 INFLUENZA VACCINE (#1) 2025 Respiratory Syncytial Virus [...] age to complete this topic Insurance MEDICARE [facility] MEDICARE SELF PAY NO INSURANCE Member Subscriber Plan / Payer (Ef fective for All Dates) Name:Judit Velazquez Member ID:Not on file Relation to Subscriber:Not on file Name:JUDIT VELAZQUEZ Subscriber ID:Not on file (Home) Address: [facility] [place] [address] Payer ID:Not on file Group ID:Not on file Type:Self Pay Address: [place], [place] Care Teams Clutch Rebuilder Relationship Specialty Start Date End Date Esvin Mckeon MD [address] [facility] [address] [place] [address] PCP - General 04/28/21
--- OUTSIDE RECORDS SUMMARY | 2025-05-21 12:50 | XMS_ITS | Clinical Summary ---
Author Organization [facility] Address [address] [place] [address] Care Team Providers Care Oracle Applications Developer Name Role Phone Unavailable Primary Care Provider [...] of 2) 11/14/2005 COVID-19 Vaccine ( - 2024-2 6 season) 2025 Influenza Adult (#1) 2025 RSV Immunization or 60+ Years (1 - 1-dose 75+ series) 11/14/2030 Hepatitis A Vaccines Aged Out No long er eligible based on patient's age to complete this topic Meningococcal B Vaccine Aged Out No l onger eligible based on patient's age to complete this topic Meningococcal Vaccine Aged Out No jessica aaliyah eligible based on patient's age to complete this topic RSV Immunizations Under 20 Months Aged Out No longer eligible based on patient's age to complete this topic Advance Directives Documents on File Type Date Recorded Patient Decator Operator Expl anation Advance Directives and Living Will 04/13/2019 12:00 AM ADVANCED DIRECTIVES
[2025-05-21 12:55] LABS: Thyroid Stimulating Hormone 1.650 uIU/mL (0.465-4.680)
[2025-05-21 14:13] LABS: Hemoglobin A1C 5.2 % (<5.7)
== END 2025-05-21 11:07 | disposition home or self-care (01) ==
LOC: ANHLAB 11:08
PROVIDERS: PCP Internal Medicine; Visit Provider Internal Medicine
DX: E78.2 Mixed hyperlipidemia (principal); I10 Essential (primary) hypertension; R73.02 Impaired glucose tolerance (oral); Z13.29 Encounter for screening for other suspected endocrine disorder; Z79.899 Other long term (current) drug therapy
CPT/HCPCS: 36415; 80053; 80061; 83036; 84439; 84443; 85025

== ENCOUNTER 2025-06-02 13:06 | Outpatient (CLI) | payer MEDICARE, OTHER, SELFPAY ==
[2025-06-02 14:24] LABS: Iron 78 ug/dL (49-181)
[2025-06-02 14:34] LABS: Percent Iron Saturation 32 % (20-50)
[2025-06-02 14:45] LABS: Anion Gap 7 mmol/L (4-12); Blood Urea Nitrogen 19 mg/dL (9-20); Calcium 9.4 mg/dL (8.4-10.2); Carbon Dioxide 31 mmol/L (22-30); Chloride 99 mmol/L (98-107); Estimated Glomerular Filt Rate 59; Glucose 96 mg/dL (65-110); Potassium 3.7 mmol/L (3.4-5.0); Sodium 137 mmol/L (137-145)
[2025-06-02 15:06] LABS: Ferritin 379.00 ng/mL (11.1-264)
== END 2025-06-02 13:07 | disposition home or self-care (01) ==
LOC: ANHLAB 13:08
PROVIDERS: PCP Internal Medicine; Visit Provider Internal Medicine
DX: D64.9 Anemia, unspecified (principal); R79.89 Other specified abnormal findings of blood chemistry
CPT/HCPCS: 36415; 80048; 82728; 83540; 83550